=== PATIENT | male | born 1940 | race Caucasian/White ===

== ENCOUNTER → 2019-09-07 | Outpatient (CLI) | payer MEDICARE ==
--- NOTE | 2019-09-10 07:47 | US ---
EXAMINATION TYPE: US prostate transrectal DATE OF EXAM: 09/07/2019 COMPARISON: NONE CLINICAL HISTORY: N40.1 BPH without obstruction. BPH, slow urine stream This examination was performed using the transrectal probe. EXAM MEASUREMENTS: Gland Size: 4.7 x 4.1 x 2.5cm Volume: 25.2 Predicted PSA: 3.0 Actual PSA (if available): not available Initial images of the seminal vesicles are within normal limits. Prostate gland is heterogeneous and measures upper limits of normal in size without discrete nodule identified on images saved. IMPRESSION: Fairly unremarkable study. Predicted PSA = volume x 0.12 ng/ml Calculated Volume = 0.5236 x L x W x H
== END | disposition home or self-care (01) ==
LOC: RADUSWWP 08:05
PROVIDERS: ATTEND Family Medicine
DX: N40.1 Benign prostatic hyperplasia with lower urinary tract symptoms (principal)
CPT/HCPCS: 76872

== ENCOUNTER → 2019-09-10 | Outpatient (CLI) | payer MEDICARE ==
--- NOTE | 2019-09-10 13:22 | US ---
EXAMINATION TYPE: US kidneys/renal and bladder DATE OF EXAM: 09/10/2019 COMPARISON: NONE CLINICAL HISTORY: 79-year-old male R31.9 HEMATURIA. TECHNIQUE: Multiple sonographic images of the kidneys and bladder are obtained. FINDINGS: EXAM MEASUREMENTS: Right Kidney: 11.0 x 4.9 x 4.0 cm Left Kidney: 10.4 x 4.8 x 4.4 cm No hydronephrosis on either side. Bladder: wnl Bilateral Jets seen: Yes IMPRESSION: No hydronephrosis. Bladder shows no gross abnormality by ultrasound.
== END | disposition home or self-care (01) ==
LOC: RADUSWWP 10:31
PROVIDERS: ATTEND Family Medicine
DX: R31.9 Hematuria, unspecified (principal)
CPT/HCPCS: 76770

== ENCOUNTER 2021-01-21 14:26 | Observation (INO) | payer MEDICARE ==
--- NOTE | 2021-01-21 15:26 | ED ---
General Adult HPI - General Chief complaint: Weakness Stated complaint: weak/ams/high HR/pcp sent Time Seen by Provider: 01/21/21 14:53 Source: family Mode of arrival: ambulatory Limitations: no limitations - History of Present Illness Initial comments: Dictation was produced using [employer] dictation software. please excuse any grammatical, word or spelling errors. Chief Complaint: 80-year-old male sent in from primary care physician's office for abnormal EKG. History of Present Illness: Patient is 80-year-old male he has multiple comorbidities. Patient takes any coagulation medications and beta blockers. Patient was brought to his primary care physician's by family for concerns of patient's mentation. Over the last 1-2 weeks patient has been having bouts of insomnia, daytime somnolence and aggressive behavior. at the bedside who is with the patient states that he's been having increased frequency of these episodes. They went to the primary care physician's office today and noticed that he was tachycardic. They performed an EKG were primary care physician was concerned about the findings. We speak told the family that he is concerned about a heart attack. Patient states he does not have any active chest pain at this time. He has reported on and off chest pain symptoms for the last several months. Patient is a poor historian and cannot tell me when the last time he had chest pain was. Daughter at the bedside reports that patient gives his medications to himself. She reports that patient is very forgetful. Patient's primary care physician was worried about a urinary tract infection. He did rec eive an IM injection of antibiotics prior to coming to the emergency room. The ROS documented in this emergency department record has been reviewed and confirmed by me. Those systems with pertinent positive or negative responses have been documented in the HPI. All other systems are other negative and/or noncontributory. PHYSICAL EXAM: General Impression: Alert and oriented x3, not in acute distress HEENT: Normocephalic atraumatic, extra-ocular movements intact, pupils equal and reactive to light bilaterally, mucous membranes moist. Cardiovascular: Heart regular rate and rhythm Chest: Able to complete full sentences, no retractions, no tachypnea Abdomen: abdomen soft, non-tender, non-distended, no organomegaly Musculoskeletal: Pulses present and equal in all extremities, no peripheral edema Motor: no focal deficits noted Neurological: CN II-XII grossly intact, no focal motor or sensory deficits noted Skin: Intact with no visualized rashes Psych: Normal affect and mood ED course: 80-year-old male presents to the emergency department for abnormal EKG. He was initially brought to PCPs office for mental status changes occurring over the last couple weeks described as emotional outbursts and sleep pattern disruption. He was sent here because of EKG that PCP is concerned about its findings. Signs upon arrival shows heart rate of 122, rest of vital signs within acceptable limits. EKG performed shows right bundle branch block. There are no ST elevations. Patient does not have any chest pain. Is well-appearing at bedside. He is tachycardic. There is suspicion that patient had forgotten to take his beta maria esther medications the last several days. EKG interpretation: Ventricular rate 123, sinus tachycardia with aberrancy, QRS 176, QTC 575. No OK prolongation, no QTC prolongation, no ST or T-wave changes noted. No old EKG for comparison. Overall this EKG is nonspecific. Repeat EKG shows no dynamic changes. Ventricular rate 102, A. fib, right bundle branch block, OK interval 112, QRS 140, QTc 521 Laboratory evaluation obtained. CBC, coag panel is unremarkable. Metabolic panel shows elevated creatinine and BUN. No baseline labs for comparison. Rest of labs unremarkable. Troponin is negative. Urinalysis negative. Morrison virus is negative. Computed tomography scan of the head and C-spine is unremarkable. Chest x-ray and pelvis x-ray unremarkable.Patient is reevaluated at the bedside at 7:00 PM he is in stable medical condition. Disposition options were discussed with patient and patient's . Patient EKG is benign no concern for ACS. This does appear to be right bundle branch block without any ST changes. Patient is asymptomatic. Concern of his mental status and his aggressive emotional outburst. does not feel comfortable with patient being dispositioned to home at this time. Patient is not reliable to a point where he can take his medications as prescribed without any assistance. Patient will be admitted to [facility]. Patient will require pillowcase turner evaluation to set up home health care nursing. - Related Data Home Medications Medication Instructions Recorded Confirmed Aspirin 81 mg PO DAILY 09/10/13 01/21/21 metFORMIN HCL [Glucophage] 500 mg PO BID 09/10/13 01/21/21 Apixaban [Eliquis] 5 mg PO BID 01/21/21 01/21/21 Citalopram Hydrobromide [CeleXA] 40 mg PO DAILY 01/21/21 01/21/21 Metoprolol Succinate [Toprol XL] 25 mg PO DAILY 01/21/21 01/21/21 Multivit-Min/FA/Lycopen/Lutein 1 tab PO DAILY 01/21/21 01/21/21 [Centrum Silver Men Tablet] Tadalafil [Cialis] 5 mg PO DAILY 01/21/21 01/21/21 Tamsulosin [Flomax] 0.4 mg PO DAILY 01/21/21 01/21/21 rOPINIRole HCL [Requip] 2 mg PO HS 01/21/21 01/21/21 Allergies Allergy/AdvReac Type Severity Reaction Status Date / Time No Known Allergies Allergy Verified 01/21/21 16:21 Review of Systems ROS Statement: Those systems with pertinent positive or pertinent negative responses have been documented in the HPI. ROS Other: All systems not noted in ROS Statement are negative. Past Medical History Past Medical History: Coronary Artery Disease (CAD), Cancer, Diabetes Mellitus, Eye Disorder, Hyperlipidemia, Hypertension Additional Past Medical History / Comment(s): SKIN CA, CATARACT LEFT EYE History of Any Multi-Drug Resistant Organisms: None Reported Past Surgical History: Appendectomy, Heart Catheterization With Stent Additional Past Surgical History / Comment(s): SKIN CANCER Past Anesthesia/Blood Transfusion Reactions: No Reported Reaction Date of Last Stent Placement:: 12/31/2008 Past Psychological History: Anxiety Smoking Status: Never smoker Past Alcohol Use History: Occasional Past Drug Use History: None Reported - Past Family History Brother(s) Family Medical History: Cancer Additional Family Medical History / Comment(s): THROAT CANCER General Exam Limitations: no limitations Course Vital Signs 01/21/21 01/21/21 14:30 15:00 Temperature 98.8 F Pulse Rate 122 H Pulse Rate [ 120 H Physical Instructor ] Respiratory 20 Rate Blood Pressure 118/87 O2 Sat by Pulse 99 Oximetry Medical Decision Making - Lab Data Result diagrams: 01/21/21 15:21 01/21/21 15:21 Lab Results 01/21/21 01/21/21 01/21/21 Range/Units 15:21 15:21 15:21 WBC 6.6 (3.8-10.6) k/uL RBC 4.98 (4.30-5.90) m/uL Hgb 15.6 (13.0-17.5) gm/dL Hct 47.5 (39.0-53.0) % MCV 95.5 (80.0-100.0) fL MCH 31.4 (25.0-35.0) pg MCHC 32.9 (31.0-37.0) g/dL RDW 12.0 (11.5-15.5) % Plt Count 165 (150-450) k/uL MPV 8.1 Neutrophils % 61 % Lymphocytes % 25 % Monocytes % 8 % Eosinophils % 4 % Basophils % 0 % Neutrophils # 4.0 (1.3-7.7) k/uL Lymphocytes # 1.6 (1.0-4.8) k/uL Monocytes # 0.6 (0-1.0) k/uL Eosinophils # 0.2 (0-0.7) k/uL Basophils # 0.0 (0-0.2) k/uL PT 10.9 (9.0-12.0) sec INR 1.0 (<1.2) APTT 20.3 L (22.0-30.0) sec Sodium 137 (137-145) mmol/L Potassium 5.4 H (3.5-5.1) mmol/L Chloride 102 (98-107) mmol/L Carbon Dioxide 26 (22-30) mmol/L Anion Gap 9 mmol/L BUN 28 H (9-20) mg/dL Creatinine 1.45 H (0.66-1.25) mg/dL Est GFR (CKD-EPI)AfAm 52 (>60 ml/min/1.73 sqM) Est GFR (CKD-EPI)NonAf 45 (>60 ml/min/1.73 sqM) Glucose 118 H (74-99) mg/dL Plasma Lactic Acid Tanner (0.7-2.0) mmol/L Calcium 9.9 (8.4-10.2) mg/dL Magnesium 2.3 (1.6-2.3) mg/dL Total Bilirubin 2.4 H (0.2-1.3) mg/dL AST 20 (17-59) U/L ALT 10 (4-49) U/L Alkaline Phosphatase 60 (38-126) U/L Troponin I (0.000-0.034) ng/mL Total Protein 7.0 (6.3-8.2) g/dL Albumin 4.0 (3.5-5.0) g/dL Urine Color Urine Appearance (Clear) Urine pH (5.0-8.0) Ur Specific [place] (1.001-1.035) Urine Protein (Negative) Urine Glucose (UA) (Negative) Urine Ketones (Negative) Urine Blood (Negative) Urine Nitrite (Negative) Urine Bilirubin (Negative) Urine Urobilinogen (<2.0) mg/dL Ur Leukocyte Esterase (Negative) Coronavirus (PCR) (Not Detectd) 01/21/21 01/21/21 01/21/21 Range/Units 15:21 15:26 15:26 WBC (3.8-10.6) k/uL RBC (4.30-5.90) m/uL Hgb (13.0-17.5) gm/dL Hct (39.0-53.0) % MCV (80.0-100.0) fL MCH (25.0-35.0) pg MCHC (31.0-37.0) g/dL RDW (11.5-15.5) % Plt Count (150-450) k/uL MPV Neutrophils % % Lymphocytes % % Monocytes % % Eosinophils % % Basophils % % Neutrophils # (1.3-7.7) k/uL Lymphocytes # (1.0-4.8) k/uL Monocytes # (0-1.0) k/uL Eosinophils # (0-0.7) k/uL Basophils # (0-0.2) k/uL PT (9.0-12.0) sec INR (<1.2) APTT (22.0-30.0) sec Sodium (137-145) mmol/L Potassium (3.5-5.1) mmol/L Chloride (98-107) mmol/L Carbon Dioxide (22-30) mmol/L Anion Gap mmol/L BUN (9-20) mg/dL Creatinine (0.66-1.25) mg/dL Est GFR (CKD-EPI)AfAm (>60 ml/min/1.73 sqM) Est GFR (CKD-EPI)NonAf (>60 ml/min/1.73 sqM) Glucose (74-99) mg/dL Plasma Lactic Acid Tanner 1.0 (0.7-2.0) mmol/L Calcium (8.4-10.2) mg/dL Magnesium (1.6-2.3) mg/dL Total Bilirubin (0.2-1.3) mg/dL AST (17-59) U/L ALT (4-49) U/L Alkaline Phosphatase (38-126) U/L Troponin I <0.012 (0.000-0.034) ng/mL Total Protein (6.3-8.2) g/dL Albumin (3.5-5.0) g/dL Urine Color Urine Appearance (Clear) Urine pH (5.0-8.0) Ur Specific [place] (1.001-1.035) Urine Protein (Negative) Urine Glucose (UA) (Negative) Urine Ketones (Negative) Urine Blood (Negative) Urine Nitrite (Negative) Urine Bilirubin (Negative) Urine Urobilinogen (<2.0) mg/dL Ur Leukocyte Esterase (Negative) Coronavirus (PCR) Not Detected (Not Detectd) 01/21/21 Range/Units 16:44 WBC (3.8-10.6) k/uL RBC (4.30-5.90) m/uL Hgb (13.0-17.5) gm/dL Hct (39.0-53.0) % MCV (80.0-100.0) fL MCH (25.0-35.0) pg MCHC (31.0-37.0) g/dL RDW (11.5-15.5) % Plt Count (150-450) k/uL MPV Neutrophils % % Lymphocytes % % Monocytes % % Eosinophils % % Basophils % % Neutrophils # (1.3-7.7) k/uL Lymphocytes # (1.0-4.8) k/uL Monocytes # (0-1.0) k/uL Eosinophils # (0-0.7) k/uL Basophils # (0-0.2) k/uL PT (9.0-12.0) sec INR (<1.2) APTT (22.0-30.0) sec Sodium (137-145) mmol/L Potassium (3.5-5.1) mmol/L Chloride (98-107) mmol/L Carbon Dioxide (22-30) mmol/L Anion Gap mmol/L BUN (9-20) mg/dL Creatinine (0.66-1.25) mg/dL Est GFR (CKD-EPI)AfAm (>60 ml/min/1.73 sqM) Est GFR (CKD-EPI)NonAf (>60 ml/min/1.73 sqM) Glucose (74-99) mg/dL Plasma Lactic Acid Tanner (0.7-2.0) mmol/L Calcium (8.4-10.2) mg/dL Magnesium (1.6-2.3) mg/dL Total Bilirubin (0.2-1.3) mg/dL AST (17-59) U/L ALT (4-49) U/L Alkaline Phosphatase (38-126) U/L Troponin I (0.000-0.034) ng/mL Total Protein (6.3-8.2) g/dL Albumin (3.5-5.0) g/dL Urine Color Light Yellow Urine Appearance Clear (Clear) Urine pH 5.0 (5.0-8.0) Ur Specific [place] 1.005 (1.001-1.035) Urine Protein Negative (Negative) Urine Glucose (UA) Negative (Negative) Urine Ketones Negative (Negative) Urine Blood Negative (Negative) Urine Nitrite Negative (Negative) Urine Bilirubin Negative (Negative) Urine Urobilinogen <2.0 (<2.0) mg/dL Ur Leukocyte Esterase Negative (Negative) Coronavirus (PCR) (Not Detectd) Disposition Clinical Impression: Tachycardia Disposition: ADMITTED IP TO THIS HOSP Condition: Fair Referrals: Lalo Louie MD [Primary Care Provider] - 1-2 days
[2021-01-21 15:36] LABS: Basophils % (A) 0 %; Eosinophils # (A) 0.2 k/uL (0-0.7); Eosinophils % (A) 4 %; HCT 47.5 % (39.0-53.0); HGB 15.6 gm/dL (13.0-17.5); Lymphocytes # (A) 1.6 k/uL (1.0-4.8); Lymphocytes % (A) 25 %; MCH 31.4 pg (25.0-35.0); MCHC 32.9 g/dL (31.0-37.0); MCV 95.5 fL (80.0-100.0); Mean Platelet Volume 8.1; Monocytes # (A) 0.6 k/uL (0-1.0); Monocytes % (A) 8 %; Neutrophils % (A) 61 %; Platelet Count 165 k/uL (150-450); RBC 4.98 m/uL (4.30-5.90); WBC 6.6 k/uL (3.8-10.6)
[2021-01-21 15:47] LABS: Calcium 9.9 mg/dL (8.4-10.2); Magnesium 2.3 mg/dL (1.6-2.3); Potassium 5.4 mmol/L (3.5-5.1); Total Bilirubin 2.4 mg/dL (0.2-1.3)
[2021-01-21 15:55] LABS: Partial Thromboplastin Time 20.3 sec (22.0-30.0); Prothrombin Time 10.9 sec (9.0-12.0)
--- NOTE | 2021-01-21 15:57 | CT ---
EXAMINATION TYPE: CT brain milton powell DATE OF EXAM: 01/21/2021 COMPARISON: None HISTORY: weakness, difficulty walking CT DLP: 1345.[address] of the brain was performed. The ventricles, basal cisterns and sulci overlying the cerebral convexities demonstrate moderate enla rgement. There is no evidence for intracranial hemorrhage or sulcal effacement. There is decreased attenuatio n about the periventricular white matter and deep white matter of both cerebral hemispheres, compatib le with chronic small vessel ischemia. No mass effects are seen. If symptoms persist consider MRI. Osseous calvarium is intact. IMPRESSION: 1. Age related atrophic and chronic small vessel ischemic change without acute intracranial process seen at this time. CT Cervical Spine: Unenhanced CT of the cervical spine was performed with bone and soft tissue window settings submitted . Coronal and sagittal reconstruction is obtained. There is normal alignment and prevertebral soft tissues. No evidence for acute cervical fracture . Scattered degenerative disc disease and spondylosis. Biapical scarring. IMPRESSION: 1. No evidence for acute fracture or subluxation of the cervical spine.
[2021-01-21 16:49] LABS: Appearance,Urine Clear (Clear); Bilirubin,Urine Negative (Negative); Blood,Urine Negative (Negative); Color,Urine Light Yellow; Glucose,Urine (UA) Negative (Negative); Ketones,Urine Negative (Negative); Leukocyte Esterase,Urine Negative (Negative); Nitrite,Urine Negative (Negative); Protein,Urine Negative (Negative); Specific Gravity,Urine 1.005 (1.001-1.035); Urobilinogen,Urine <2.0 mg/dL (<2.0)
--- NOTE | 2021-01-21 17:35 | XR ---
EXAMINATION TYPE: XR pelvis AP view DATE OF EXAM: 01/21/2021 COMPARISON: NONE HISTORY: Fall. Pain TECHNIQUE: Single view FINDINGS: Pelvic ring appears intact. Proximal femurs and hip joints are intact. Sacroiliac joints ar e intact. IMPRESSION: Negative exam. No fracture.
--- NOTE | 2021-01-21 17:36 | XR ---
EXAMINATION TYPE: XR chest 1V portable DATE OF EXAM: 01/21/2021 COMPARISON: NONE HISTORY: Abnormal cardiogram TECHNIQUE: Single view FINDINGS: There is no heart failure nor confluent pneumonic infiltrate. Costophrenic angles are clear . There are chest leads. IMPRESSION: No active cardiopulmonary disease.
[2021-01-21] MEDS ORDERED: NALOXONE 0.4 MG/ML 1 ML VIAL IV PRN (19:12)
[2021-01-21] MEDS ORDERED: SODIUM CHLORIDE 0.9% 1,000 ML IV SCH (19:15)
[2021-01-21] MEDS: APIXABAN 5 MG TAB PO SCH (20:15)
[2021-01-21] MEDS: METOPROLOL SUCCINATE (ER) 25 MG TAB.ER.24H PO SCH (20:15)
[2021-01-21] MEDS: metFORMIN 500 MG TAB PO SCH (20:15)
[2021-01-22] MEDS ORDERED: QUEtiapine 25 MG TAB PO SCH (00:30)
--- NOTE | 2021-01-22 00:34 | P.HPIM ---
History of Present Illness H&P Date: 01/21/21 Chief Complaint: dementia behavioral changes 80-year-old male with coronary artery disease, diabetes mellitus, hyperlipidemia and hypertension Was brought in by his family due to worsening behavior home becoming more and more aggressive. He is having daytime somnolence and then insomnia at night keeping everyone up disturbing the whole family. Patient family contact PCP who suggested that he gets evaluated and upon evaluating the patient his PCP was voicing concerns regarding heart attack or UTI for which he recommended that he comes to hospital for evaluation. Patient is unable to provide any meaningful history is awake alert however he is not happy about being in the hospital and keeps asking to leave couldn't obtain any history from him. History was obtained by reviewing medical records Patient was thoroughly evaluated in the ED CT imaging of the brain showed no acute pathology Covid testing was negative urine analysis was negative age and has slightly elevated creatinine unknown baseline mild hyperkalemia 5.4. Blood work overall unremarkable EKG shows right bundle branch block Chest pain trouble breathing denies any fevers chills denies any abdominal pain nausea or vomiting Anabel is requesting admission for social work to evaluate the case and possibly help with home care or placement at rehab Review of Systems ROS unobtainable: due to mental status Past Medical History Past Medical History: Coronary Artery Disease (CAD), Cancer, Diabetes Mellitus, Eye Disorder, Hyperlipidemia, Hypertension Additional Past Medical History / Comment(s): SKIN CA, CATARACT LEFT EYE History of Any Multi-Drug Resistant Organisms: None Reported Past Surgical History: Appendectomy, Heart Catheterization With Stent Additional Past Surgical History / Comment(s): SKIN CANCER Past Anesthesia/Blood Transfusion Reactions: No Reported Reaction Date of Last Stent Placement:: 12/31/2008 Past Psychological History: Anxiety Smoking Status: Never smoker Past Alcohol Use History: Occasional Additional Past Alcohol Use History / Comment(s): Patient states he uses cigars two a week Past Drug Use History: None Reported - Past Family History Brother(s) Family Medical History: Cancer Additional Family Medical History / Comment(s): THROAT CANCER Medications and Allergies Home Medications Medication Instructions Recorded Confirmed Type Aspirin 81 mg PO DAILY 09/10/13 01/21/21 History metFORMIN HCL [Glucophage] 500 mg PO BID 09/10/13 01/21/21 History Apixaban [Eliquis] 5 mg PO BID 01/21/21 01/21/21 History Citalopram Hydrobromide [CeleXA] 40 mg PO DAILY 01/21/21 01/21/21 History Metoprolol Succinate [Toprol XL] 25 mg PO DAILY 01/21/21 01/21/21 History Multivit-Min/FA/Lycopen/Lutein 1 tab PO DAILY 01/21/21 01/21/21 History [Centrum Silver Men Tablet] Tadalafil [Cialis] 5 mg PO DAILY 01/21/21 01/21/21 History Tamsulosin [Flomax] 0.4 mg PO DAILY 01/21/21 01/21/21 History rOPINIRole HCL [Requip] 2 mg PO HS 01/21/21 01/21/21 History Allergies Allergy/AdvReac Type Severity Reaction Status Date / Time No Known Allergies Allergy Verified 01/21/21 16:21 Physical Exam Vitals: Vital Signs Temp Pulse Pulse Pulse Resp BP BP 01/21/21 22:08 97.9 F 107 H 18 133/86 01/21/21 15:00 120 H 01/21/21 14:30 98.8 F 122 H 20 118/87 Pulse Ox 01/21/21 22:08 97 01/21/21 15:00 01/21/21 14:30 99 Intake and Output 01/21/21 01/21/21 01/22/21 14:59 22:59 06:59 Other: Weight 72.575 kg 72.575 kg Constitutional: No acute distress, conversant, pleasant, eager to leave Eyes: Anicteric sclerae, moist conjunctiva, Pupils equal round reactive to light ENMT: NC/AT Oropharynx clear, no erythema, or exudates Neck: Supple, FROM, no masses, or JVD No carotid bruits No thyromegaly Lungs: Clear to auscultation Clear to percussion Normal respiratory effort, no accessory muscle use Cardiovascular: Heart regular in rate and rhythm, No murmurs, gallops, or rubs No peripheral edema Abdominal: Soft Nontender, no guarding, rebound or rigidity Abdomen moving with respiration Normoactive bowel sounds No hepatomegaly, No splenomegaly No palpable mass No abdominal wall hernia noted Skin: Normal temperature, tone, texture, turgor Small area of erythema over the right forehead with central scabbing no bleeding Extremities: No digital cyanosis No clubbing Pedal pulses intact and symmetrical Radial pulses intact and symmetrical No calf tenderness Psychiatric: Alert and oriented to person, place Neuro Muscles Strength 5/5 in all 4 extremities moving all extremities purposefully and spontaneously Sensation to light touch grossly present throughout Cranial nerves II-XII grossly intact Lymphatics: no palpable cervical or supraclavicular , or inguinal lymph nodes Results CBC & Chem 7: 01/21/21 15:21 01/21/21 15:21 Labs: Abnormal Lab Results - Last 24 Hours (Table) 01/21/21 01/21/21 Range/Units 15:21 15:21 APTT 20.3 L (22.0-30.0) sec Potassium 5.4 H (3.5-5.1) mmol/L BUN 28 H (9-20) mg/dL Creatinine 1.45 H (0.66-1.25) mg/dL Glucose 118 H (74-99) mg/dL Total Bilirubin 2.4 H (0.2-1.3) mg/dL Thrombosis Risk Factor Assmnt - Choose All That Apply Each Factor Represents 1 point: Obesity (BMI >25) Each Risk Factor Represents 3 Points: Age 75 years or older Thrombosis Risk Factor Assessment Total Risk Factor Score: 4 Thrombosis Risk Factor Assessment Level: Moderate Risk Assessment and Plan Assessment: Behavioral changes possibly related to progressive dementia Supportive care ET evaluation tool maintenance worker to assist with home care versus placement Slightly elevated creatinine possibly related CK D unknown baseline Patient refusing IV lines and telemetry We'll encourage by mouth intake We'll monitor renal function and urine output Unable to start patient on any IV hydration at this time Urine analysis unremarkable Covid testing was negative Imaging of the brain showed no acute pathology Labs overall unremarkable septum for elevated creatinine and slightly elevated potassium unknown baseline Will be offered Seroquel at night if patient continues to have aggressive behavior and attempting to leave non compliance with meds, he takes his own, and family is not sure if he has been taking them Full code Anticipated length of stay less than 2 midnights anticipated discharge pending hospital social worker eval home with home care versus rehab
[2021-01-22 05:02] LABS: Basophils # (A) 0.1 k/uL (0-0.2); Basophils % (A) 1 %; Eosinophils # (A) 0.3 k/uL (0-0.7); Eosinophils % (A) 4 %; HCT 50.3 % (39.0-53.0); HGB 16.1 gm/dL (13.0-17.5); Lymphocytes % (A) 28 %; MCV 100.2 fL (80.0-100.0); Monocytes # (A) 0.7 k/uL (0-1.0); Monocytes % (A) 10 %; Neutrophils # (A) 3.9 k/uL (1.3-7.7); Neutrophils % (A) 54 %; Platelet Count 150 k/uL (150-450); RBC 5.02 m/uL (4.30-5.90); RDW 12.1 % (11.5-15.5); WBC 7.1 k/uL (3.8-10.6)
[2021-01-22 08:02] VITALS: RESP 16
[2021-01-22] MEDS ORDERED: MULTIVITAMINS, THERA 1 EACH TAB PO SCH (09:00)
[2021-01-22] MEDS ORDERED: ASPIRIN 81 MG PO SCH (09:00)
[2021-01-22] MEDS ORDERED: CITALOPRAM HYDROBROMIDE 20 MG TAB PO SCH (09:00)
[2021-01-22] MEDS: APIXABAN 5 MG TAB PO SCH (09:40)
[2021-01-22] MEDS: METOPROLOL SUCCINATE (ER) 25 MG TAB.ER.24H PO SCH (09:41)
[2021-01-22] MEDS: metFORMIN 500 MG TAB PO SCH (09:41)
[2021-01-22 11:22] LABS: African American GFR (CKD) 54.2 (60.0-200.0); Anion Gap 15.4 mmol/L (4.00-12.00); BUN/Creat Ratio 17.21 Ratio (12.00-20.00); Blood Urea Nitrogen 24.1 mg/dL (9.0-27.0); Calcium 9.1 mg/dL (8.7-10.3); Carbon Dioxide 19.6 mmol/L (21.6-31.8); Non-African American GFR(CKD) 46.8 (60.0-200.0); Potassium 4.8 mmol/L (3.5-5.5)
[2021-01-22 14:50] VITALS: BP 114/83; PULSE 105; TEMP 98.7
--- NOTE | 2021-01-22 21:12 | P.DS ---
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 In the ER he underwent an extensive evaluation. Vital signs within normal limits. Urinalysis was negative for urinary tract infection, EKG did demonstrate a right bundle branch block however the patient was asymptomatic from any signs of chest pain, no prior EKG was available. Troponin was negative. He underwent a CT of the head and cervical spine which was negative, chest x-ray negative, and pelvic x-ray negative. COVID-19 testing was also negative. During his hospital stay patient was alert and oriented 3, but did have some episodes of confusion, he had no episodes of aggression. He did not require any additional medications. Labs did reveal slight dehydration with a BUN of 28 however patient refused IV fluids and was given oral hydration and his BUN decreased to 24. He was noted to have tachycardia of 122 on admission which decreased to the 80-100 prior to discharge once he was resumed on his home medications. It was felt that he is medically optimized for discharge. Family was given options of private duty home health care as well as regular home health care but refused. Patient does not appear to have any acute medical illness and was subsequently discharged home in stable condition. Follow-up: Did discuss with family need to follow-up with his PCP for further evaluation, no longer requires hospitaization but need to ensure taking medication and further outpatient evaluation. Family in agreement. Patient seen and examined at bedside. Denies any chest pain, shortness breath, nausea, vomiting, diarrhea. He states he has had increased anxiety at home as his has difficulty walking due to bad legs, his daughter has been less able to help because of her own issues, and his son no longer returns their phone calls. He realizes that he has some difficulty with memory and states that he feels better after being out of the environment and at the hospital. Vital signs reviewed and stable. General: non toxic, no distress, appears at stated age Derm: warm, dry Head: atraumatic, normocephalic, symmetric Eyes: EOMI, no lid lag, anicteric sclera Mouth: no lip lesion, mucus membranes moist Cardiovascular: S1S2 reg, no murmur, positive posterior tibial pulse bilateral, Lungs: CTA bilateral, no rhonchi, no rales , no accessory muscle use Abdominal: soft, nontender to palpation, no guarding, no appreciable organomegaly Ext: no gross muscle atrophy, no edema, no contractures Neuro: CN II-XI grossly intact, no focal neuro deficits, nonantalgic gait Psych: Alert, oriented 3, appropriate affect A total of 25 minutes of time were spent preparing this complex discharge summary . Patient Condition at Discharge: Fair Plan - Discharge Summary Discharge Rx Participant: Yes New Discharge Prescriptions: Continue metFORMIN HCL [Glucophage] 500 mg PO BID Aspirin 81 mg PO DAILY rOPINIRole HCL [Requip] 2 mg PO HS Tamsulosin [Flomax] 0.4 mg PO DAILY Apixaban [Eliquis] 5 mg PO BID Citalopram Hydrobromide [CeleXA] 40 mg PO DAILY Metoprolol Succinate [Toprol XL] 25 mg PO DAILY Multivit-Min/FA/Lycopen/Lutein [Centrum Silver Men Tablet] 1 tab PO DAILY Tadalafil [Cialis] 5 mg PO DAILY Discharge Medication List Aspirin 81 mg PO DAILY 09/10/13 [History] metFORMIN HCL [Glucophage] 500 mg PO BID 09/10/13 [History] Apixaban [Eliquis] 5 mg PO BID 01/21/21 [History] Citalopram Hydrobromide [CeleXA] 40 mg PO DAILY 01/21/21 [History] Metoprolol Succinate [Toprol XL] 25 mg PO DAILY 01/21/21 [History] Multivit-Min/FA/Lycopen/Lutein [Centrum Silver Men Tablet] 1 tab PO DAILY 01/21/21 [History] Tadalafil [Cialis] 5 mg PO DAILY 01/21/21 [History] Tamsulosin [Flomax] 0.4 mg PO DAILY 01/21/21 [History] rOPINIRole HCL [Requip] 2 mg PO HS 01/21/21 [History] Follow up Appointment(s)/Referral(s): Lalo Louie MD [Primary Care Provider] - 1-2 days Patient Instructions/Handouts: Tachycardia (GEN) Activity/Diet/Wound Care/Special Instructions: Activity: as tolerated Diet: regular Special Instructions: please stay hydrated Discharge Disposition: HOME SELF-CARE
== END 2021-01-22 19:26 | disposition home or self-care (01) ==
LOC: EC 14:26 → 6NMEDSUR 19:12
PROVIDERS: ADMIT Internal Medicine; ATTEND Internal Medicine
DX: R00.0 Tachycardia, unspecified (principal); I45.10 Unspecified right bundle-branch block; E86.0 Dehydration; F91.8 Other conduct disorders; Z91.14 Patient's other noncompliance with medication regimen; Z91.19 Patient's noncompliance with other medical treatment and regimen; R94.31 Abnormal electrocardiogram [ECG] [EKG]; R41.82 Altered mental status, unspecified; G47.00 Insomnia, unspecified; E11.9 Type 2 diabetes mellitus without complications; I48.91 Unspecified atrial fibrillation; I10 Essential (primary) hypertension; I25.10 Atherosclerotic heart disease of native coronary artery without angina pectoris; E87.5 Hyperkalemia; H26.9 Unspecified cataract; E78.5 Hyperlipidemia, unspecified; E66.9 Obesity, unspecified; Z68.25 Body mass index [BMI] 25.0-25.9, adult; F41.9 Anxiety disorder, unspecified; R79.89 Other specified abnormal findings of blood chemistry; M50.30 Other cervical disc degeneration, unspecified cervical region; M47.812 Spondylosis without myelopathy or radiculopathy, cervical region; F17.290 Nicotine dependence, other tobacco product, uncomplicated; Z20.822 Contact with and (suspected) exposure to COVID-19; Z79.82 Long term (current) use of aspirin; Z79.84 Long term (current) use of oral hypoglycemic drugs; Z79.01 Long term (current) use of anticoagulants; Z79.899 Other long term (current) drug therapy; Z85.828 Personal history of other malignant neoplasm of skin; Z90.49 Acquired absence of other specified parts of digestive tract; Z95.5 Presence of coronary angioplasty implant and graft; Z80.8 Family history of malignant neoplasm of other organs or systems
CPT/HCPCS: 99285; 36415; 93005; 80053; 80048; 82247; 83605; 83735; 84450; 84460; 84484 ×2; 85025 ×2; 85610; 85730; 81003; 87635; 72170; 71045; 72125; 70450; G0378 ×2

== ENCOUNTER 2021-01-28 19:34 | Observation (INO) | payer MEDICARE ==
[2021-01-28] MEDS ORDERED: SODIUM CHLORIDE 0.9% 1,000 ML IV ONE (20:34)
[2021-01-28 20:50] LABS: Basophils % (A) 0 %; Eosinophils # (A) 0.2 k/uL (0-0.7); Eosinophils % (A) 3 %; HCT 41.7 % (39.0-53.0); Lymphocytes # (A) 1.1 k/uL (1.0-4.8); Lymphocytes % (A) 13 %; MCH 32.2 pg (25.0-35.0); MCHC 33.5 g/dL (31.0-37.0); MCV 96.3 fL (80.0-100.0); Mean Platelet Volume 8.5; Monocytes # (A) 0.5 k/uL (0-1.0); Monocytes % (A) 6 %; Neutrophils # (A) 6.4 k/uL (1.3-7.7); Neutrophils % (A) 76 %; Platelet Count 136 k/uL (150-450); RBC 4.33 m/uL (4.30-5.90); RDW 12.2 % (11.5-15.5); WBC 8.4 k/uL (3.8-10.6)
[2021-01-28 21:01] LABS: Lactic Acid, Venous 0.9 mmol/L (0.7-2.0)
[2021-01-28 21:02] LABS: INR 1.1 (<1.2); Partial Thromboplastin Time 23.3 sec (22.0-30.0); Prothrombin Time 11.8 sec (9.0-12.0)
[2021-01-28 21:03] LABS: ALT 12 U/L (4-49); AST 20 U/L (17-59); African American GFR (CKD) 57 (>60 ml/min/1.73 sqM); Albumin 3.6 g/dL (3.5-5.0); Alcohol <10 mg/dL; Alkaline Phosphatase 57 U/L (38-126); Anion Gap 7 mmol/L; Blood Urea Nitrogen 29 mg/dL (9-20); Calcium 8.6 mg/dL (8.4-10.2); Carbon Dioxide 20 mmol/L (22-30); Chloride 107 mmol/L (98-107); Glucose 147 mg/dL (74-99); Non-African American GFR(CKD) 50 (>60 ml/min/1.73 sqM); Potassium 4.8 mmol/L (3.5-5.1); Sodium 134 mmol/L (137-145); Total Bilirubin 1.7 mg/dL (0.2-1.3); Total Protein 6.3 g/dL (6.3-8.2)
[2021-01-28 21:44] LABS: Appearance,Urine Clear (Clear); Bilirubin,Urine Negative (Negative); Blood,Urine Negative (Negative); Color,Urine Yellow; Glucose,Urine (UA) Negative (Negative); Ketones,Urine Negative (Negative); Leukocyte Esterase,Urine Negative (Negative); Nitrite,Urine Negative (Negative); Protein,Urine Negative (Negative); Urobilinogen,Urine <2.0 mg/dL (<2.0)
[2021-01-28 21:50] LABS: Specific Gravity,Urine 1.048 (1.001-1.035)
--- NOTE | 2021-01-28 21:53 | CT ---
EXAMINATION TYPE: CT brain wo con DATE OF EXAM: 01/28/2021 COMPARISON: 14/10/2020 HISTORY: AMS TECHNIQUE: CT scan of the head performed without contrast CT DLP: 1561.7 mGycm Automated exposure control for dose reduction was used. FINDINGS: No acute intracranial hemorrhage, midline shift or mass effect. Andres-white matter differentiation is preserved. There is new diffuse low attenuation involve the kristina compared to the prior study. There is a small f ocus of discrete low-attenuation in the left side of the rkistina which was also not seen on the prior st udy is prominence of the CSF spaces and ventricles in keeping with brain volume loss similar to prior study. There is patchy low-attenuation in the deep white matter periventricular regions and foci of low atte nuation in the bilateral basal ganglia likely on the basis of chronic microvascular ischemic changes and lacunar infarcts and both have increased in the interval compared to the most recent prior study. No acute osseous, orbital or soft tissue abnormalities seen. There is a mucosal retention cyst in the right maxillary sinus. There is mild mucosal thickening in t he ethmoid sinus. No paranasal sinus or mastoid air cell air-fluid levels. Atherosclerotic calcifications are seen in the intracranial internal carotid arteries. IMPRESSION: 1. NO ACUTE INTRACRANIAL HEMORRHAGE MIDLINE SHIFT OR MASS EFFECT. 2. COMPARED TO THE PRIOR STUDY THERE IS DIFFUSE LOW-ATTENUATION INVOLVING THE KRISTINA WITH A DISCRETE FO CUS OF LOW-ATTENUATION THE LEFT SIDE OF THE KRISTINA WHICH COULD BE REFLECTIVE OF ISCHEMIA THOUGH ARTIFAC T AT THIS LEVEL COULD HAVE A SIMILAR APPEARANCE. . 3. TRACE PATCHY LOW-ATTENUATION THE DEEP WHITE MATTER AND PERIVENTRICULAR REGION LIKELY ON THE BASIS OF CHRONIC MICROVASCULAR ISCHEMIC CHANGES. The need for a brain MRI should be determined on clinical basis.
--- NOTE | 2021-01-28 22:03 | CT ---
EXAMINATION TYPE: CT angio head neck DATE OF EXAM: 01/28/2021 HISTORY: ams COMPARISON: None CT DLP: 1561.7 mGycm. Automated Exposure Control for Dose Reduction was Utilized. TECHNIQUE: CTA scan of the neck is performed with IV Contrast, patient injected with 65 mL of Isovue 370, axial images are obtained, coronal and sagittal reformatted images are reviewed. 3D reconstruct ed images are created on an independent workstation and reviewed. FINDINGS: Carotid/Vascular Structures: There is suboptimal evaluation due to bolus timing and suboptimal opacification of the arterial struc tures. There is minimal atherosclerotic calcifications at the origin of the left subclavian artery. There is minimal narrowing at the right common carotid artery bifurcation secondary to calcific and soft tiss ue plaque. External carotid arteries are patent. Renal carotid arteries in the neck are patent. Left vertebral artery is dominant. Both vertebral arteries are patent. The basilar artery is patent. There are sclerotic calcifications are seen in the intracranial internal carotid arteries. There are cerebral arteries are patent. All cerebral arteries are patent. The posterior cerebral joshua patricia are patent. No evidence for aneurysm or dissection. The deep venous structures are patent. Other: No cervical lymphadenopathy. The airways are patent. The upper lungs are complicated in evaluation by respiratory motion. The thyroid glands are not enlarged. There are degenerative changes in the cervical spine. IMPRESSION: No evidence for acute arterial occlusion. No significant stenosis and [place]. See body of r eport for incidental's. NASCET criteria was used in interpretation of this exam?
[2021-01-28 22:04] LABS: Cocaine Screen,Urine Not Detected (NotDetected); Opiate Screen,Urine Not Detected (NotDetected); Phencyclidine Screen,Urine Not Detected (NotDetected); Urn Cannabinoid Scrn Not Detected (NotDetected)
[2021-01-28 22:05] LABS: Amphetamine Screen,Urine Not Detected (NotDetected); Barbiturate Screen,Urine Not Detected (NotDetected); Benzodiazepines Screen,Urine Detected (NotDetected); Methadone Screen, Urine Not Detected (NotDetected); Oxycodone Screen, Urine Not Detected (NotDetected); Tricyclic Antidepressant,Urine Detected (NotDetected)
--- NOTE | 2021-01-28 22:19 | ED ---
General Adult HPI - General Chief complaint: Weakness Stated complaint: Weakness,AMS Time Seen by Provider: 01/28/21 19:58 Source: patient, EMS, RN notes reviewed, old records reviewed Mode of arrival: EMS - History of Present Illness Initial comments: I evaluated the patient when he was placed in a room.Patient is an 80-year-old male with past medical history remarkable for atrial fibrillation on eliquis, CAD, skin cancer, diabetes, hypertension who presents emergency department after being brought in by family members for lethargy and altered mental status. They've noticed that over the last week or so since he was last discharged from the hospital, he has been experiencing slowly increasing lethargy, slurring of speech, and tiredness. He is hard to awaken. He is normally "sharp" and fully alert and oriented. He is now only alert and oriented times one to 2 inte rmittently. He was originally scheduled to have an outpatient MRI, however they bring him to the emergency department tonight over concern for this worsening symptoms. Patient currently denies any acute complaints to me. He is easily arousable to voice, however it does appear sleepy. He denies any fevers, cough, chills. Denies any abdominal pain, nausea, vomiting. He was vaccinated for COVID-19. Family members assist in the history. He presents to the emergency Department for altered mental status. There is no known trauma per family. No new drug exposures per family. - Related Data Home Medications Medication Instructions Recorded Confirmed Aspirin 81 mg PO DAILY 09/10/13 01/28/21 metFORMIN HCL [Glucophage] 500 mg PO BID 09/10/13 01/28/21 Apixaban [Eliquis] 5 mg PO BID 01/21/21 01/28/21 Citalopram Hydrobromide [CeleXA] 40 mg PO DAILY 01/21/21 01/28/21 Metoprolol Succinate [Toprol XL] 25 mg PO DAILY 01/21/21 01/28/21 Multivit-Min/FA/Lycopen/Lutein 1 tab PO DAILY 01/21/21 01/28/21 [Centrum Silver Men Tablet] Tadalafil [Cialis] 5 mg PO DAILY 01/21/21 01/28/21 Tamsulosin [Flomax] 0.4 mg PO DAILY 01/21/21 01/28/21 rOPINIRole HCL [Requip] 2 mg PO HS 01/21/21 01/28/21 Allergies Allergy/AdvReac Type Severity Reaction Status Date / Time No Known Allergies Allergy Verified 01/28/21 21:51 Review of Systems ROS Statement: Those systems with pertinent positive or pertinent negative responses have been documented in the HPI. ROS Other: All systems not noted in ROS Statement are negative. Past Medical History Past Medical History: Coronary Artery Disease (CAD), Cancer, Diabetes Mellitus, Eye Disorder, Hyperlipidemia, Hypertension Additional Past Medical History / Comment(s): SKIN CA, CATARACT LEFT EYE History of Any Multi-Drug Resistant Organisms: None Reported Past Surgical History: Appendectomy, Heart Catheterization With Stent Additional Past Surgical History / Comment(s): SKIN CANCER Past Anesthesia/Blood Transfusion Reactions: No Reported Reaction Date of Last Stent Placement:: 12/31/2008 Past Psychological History: Anxiety Smoking Status: Never smoker Past Alcohol Use History: Occasional Past Drug Use History: None Reported - Past Family History Brother(s) Family Medical History: Cancer Additional Family Medical History / Comment(s): THROAT CANCER General Exam - General Exam Comments Initial Comments: General: Appears sleepy in bed. HEAD: Normal with no signs of head trauma. EYES: PERRLA, EOMI, conjunctiva normal, no discharge. Pupils are 3 mm and equal bilaterally. ENT: Hearing grossly intact, normal oropharynx. RESPIRATORY: Clear breath sounds bilaterally. No wheezes, rales, or rhonchi. C/V: Irregular rate and rhythm. S1 and S2 auscultated. Peripheral pulses are 2+ and intact throughout. No peripheral edema. ABD: Abd is soft, nontender, nondistended EXT: Normal range of motion, no obvious deformity SKIN: No rashes or lesions observed on exposed skin. NEURO: Alert and oriented 1-2. Patient is sleepy. He has no focal deficits. Cerebellar function is intact as evident by normal finger to nose testing. His normal strength and sensation. No obvious deficits. He may have slight left- sided facial droop, however on retesting appears to be normal. NIH stroke scale is 2, getting 1 point each for month incorrect as well as slightly decreased level of consciousness. Course Vital Signs 01/28/21 01/28/21 19:36 21:48 Temperature 97.6 F Pulse Rate 111 H 108 H Respiratory 24 16 Rate Blood Pressure 101/79 112/94 O2 Sat by Pulse 95 95 Oximetry Medical Decision Making - Medical Decision Making Based on the patient's presentation and physical exam, I'm concerned for acute altered mental status and the patient. This is been ongoing for multiple days. He does have a NIH scale of 2 secondary to the altered mental status and lethargy, and therefore we will obtain a CT head and CTA head. Stroke pager will not be activated at this time as I low suspicion and have high suspicion for other etiology at this time. There is also been ongoing for multiple days and is not acute. There is no known trauma. No other deficits. All to mental status labs will be obtained. Cardiac labs will be obtained as well as an EKG and chest x-ray. Patient was in agreement with this plan as were his family members. He'll be connected to continuous cardiac monitoring while he is here in the department. EKG shows no signs of acute ischemia. Shows chronic A. fib. Labs are re markable for a chronically elevated BUN/creatinine. Troponin is negative. Urinalysis is unremarkable. UDS is positive for benzos which she is not prescribed as well as tricyclics. Patient's CT brain revealed possible artifact in the margoth, however they recommend MRI follow-up. Otherwise there is no acute intracranial process. There are chronic changes. CTA of the brain and neck revealed no evidence for acute arterial occlusion. Patient's chest x-ray reveals atelectasis but no other acute cardiopulmonary process. On review, patient's does have exposure to Ativan and takes it 3 times a day. Family is uncertain if she is missing pills. No one was at home to check. They will go home and check and report back to us. Otherwise he is not prescribed benzodiazepines and has no exposures. This is a possible cause for his current presentation, however I do believe he should be admitted for MRI and neurological evaluation tomorrow. I agreement this plan. I spoke with the admitting attending, Dr. Junior who was also agreement this plan. Patient will be admitted to telemetry bed in serous condition.I consulted neurology Dr. Willoughby to evaluate the patient in the morning.Patient's Eliquis will be held until MRI scan is complete. - Lab Data Result diagrams: 01/28/21 18:16 01/28/21 18:16 Lab Results 01/28/21 01/28/21 01/28/21 Range/Units 18:16 18:16 18:16 WBC 8.4 (3.8-10.6) k/uL RBC 4.33 (4.30-5.90) m/uL Hgb 14.0 (13.0-17.5) gm/dL Hct 41.7 (39.0-53.0) % MCV 96.3 (80.0-100.0) fL MCH 32.2 (25.0-35.0) pg MCHC 33.5 (31.0-37.0) g/dL RDW 12.2 (11.5-15.5) % Plt Count 136 L (150-450) k/uL MPV 8.5 Neutrophils % 76 % Lymphocytes % 13 % Monocytes % 6 % Eosinophils % 3 % Basophils % 0 % Neutrophils # 6.4 (1.3-7.7) k/uL Lymphocytes # 1.1 (1.0-4.8) k/uL Monocytes # 0.5 (0-1.0) k/uL Eosinophils # 0.2 (0-0.7) k/uL Basophils # 0.0 (0-0.2) k/uL PT 11.8 (9.0-12.0) sec INR 1.1 (<1.2) APTT 23.3 (22.0-30.0) sec Sodium 134 L (137-145) mmol/L Potassium 4.8 (3.5-5.1) mmol/L Chloride 107 (98-107) mmol/L Carbon Dioxide 20 L (22-30) mmol/L Anion Gap 7 mmol/L BUN 29 H (9-20) mg/dL Creatinine 1.34 H (0.66-1.25) mg/dL Est GFR (CKD-EPI)AfAm 57 (>60 ml/min/1.73 sqM) Est GFR (CKD-EPI)NonAf 50 (>60 ml/min/1.73 sqM) Glucose 147 H (74-99) mg/dL Plasma Lactic Acid Tanner (0.7-2.0) mmol/L Calcium 8.6 (8.4-10.2) mg/dL Total Bilirubin 1.7 H (0.2-1.3) mg/dL AST 20 (17-59) U/L ALT 12 (4-49) U/L Alkaline Phosphatase 57 (38-126) U/L Ammonia (<30) umol/L Troponin I (0.000-0.034) ng/mL Total Protein 6.3 (6.3-8.2) g/dL Albumin 3.6 (3.5-5.0) g/dL Urine Color Urine Appearance (Clear) Urine pH (5.0-8.0) Ur Specific [place] (1.001-1.035) Urine Protein (Negative) Urine Glucose (UA) (Negative) Urine Ketones (Negative) Urine Blood (Negative) Urine Nitrite (Negative) Urine Bilirubin (Negative) Urine Urobilinogen (<2.0) mg/dL Ur Leukocyte Esterase (Negative) Urine Opiates Screen (NotDetected) Ur Oxycodone Screen (NotDetected) Urine Methadone Screen (NotDetected) Ur Propoxyphene Screen (NotDetected) Ur Barbiturates Screen (NotDetected) U Tricyclic Antidepress (NotDetected) Ur Phencyclidine Scrn (NotDetected) Ur Amphetamines Screen (NotDetected) U Methamphetamines Scrn (NotDetected) U Benzodiazepines Scrn (NotDetected) Urine Cocaine Screen (NotDetected) U Marijuana (THC) Screen (NotDetected) Serum Alcohol <10 mg/dL 01/28/21 01/28/21 01/28/21 Range/Units 18:16 18:16 21:25 WBC (3.8-10.6) k/uL RBC (4.30-5.90) m/uL Hgb (13.0-17.5) gm/dL Hct (39.0-53.0) % MCV (80.0-100.0) fL MCH (25.0-35.0) pg MCHC (31.0-37.0) g/dL RDW (11.5-15.5) % Plt Count (150-450) k/uL MPV Neutrophils % % Lymphocytes % % Monocytes % % Eosinophils % % Basophils % % Neutrophils # (1.3-7.7) k/uL Lymphocytes # (1.0-4.8) k/uL Monocytes # (0-1.0) k/uL Eosinophils # (0-0.7) k/uL Basophils # (0-0.2) k/uL PT (9.0-12.0) sec INR (<1.2) APTT (22.0-30.0) sec Sodium (137-145) mmol/L Potassium (3.5-5.1) mmol/L Chloride (98-107) mmol/L Carbon Dioxide (22-30) mmol/L Anion Gap mmol/L BUN (9-20) mg/dL Creatinine (0.66-1.25) mg/dL Est GFR (CKD-EPI)AfAm (>60 ml/min/1.73 sqM) Est GFR (CKD-EPI)NonAf (>60 ml/min/1.73 sqM) Glucose (74-99) mg/dL Plasma Lactic Acid [place]anner 0.9 (0.7-2.0) mmol/L Calcium (8.4-10.2) mg/dL Total Bilirubin (0.2-1.3) mg/dL AST (17-59) U/L ALT (4-49) U/L Alkaline Phosphatase (38-126) U/L Ammonia <9 (<30) umol/L Troponin I <0.012 (0.000-0.034) ng/mL Total Protein (6.3-8.2) g/dL Albumin (3.5-5.0) g/dL Urine Color Yellow Urine Appearance Clear (Clear) Urine pH 5.0 (5.0-8.0) Ur Specific [place] 1.048 H (1.001-1.035) Urine Protein Negative (Negative) Urine Glucose (UA) Negative (Negative) Urine Ketones Negative (Negative) Urine Blood Negative (Negative) Urine Nitrite Negative (Negative) Urine Bilirubin Negative (Negative) Urine Urobilinogen <2.0 (<2.0) mg/dL Ur Leukocyte Esterase Negative (Negative) Urine Opiates Screen Not Detected (NotDetected) Ur Oxycodone Screen Not Detected (NotDetected) Urine Methadone Screen Not Detected (NotDetected) Ur Propoxyphene Screen Not Detected (NotDetected) Ur Barbiturates Screen Not Detected (NotDetected) U Tricyclic Antidepress Detected H (NotDetected) Ur Phencyclidine Scrn Not Detected (NotDetected) Ur Amphetamines Screen Not Detected (NotDetected) U Methamphetamines Scrn Not Detected (NotDetected) U Benzodiazepines Scrn Detected H (NotDetected) Urine Cocaine Screen Not Detected (NotDetected) U Marijuana (THC) Screen Not Detected (NotDetected) Serum Alcohol mg/dL - EKG Data -: EKG Interpreted by Me EKG Comments: 12-lead Electrocardiogram Interpretation Note EKG was reviewed and interpreted by myself. 12-lead ECG performed at 2013 is interpreted by me as revealing atrial fibrillation with wide QRS at a rate of 110 beats per minute. Left axis deviation. [place] interval is unobtainable, QRS duration is 160 ms, QTc is 546 milliseconds.. There were no ST or T wave abnormalities to suggest myocardial ischemia or injury. R wave progression across the precordium was satisfactory. By my interpretation this EKG is non- diagnostic for acute ischemia. In comparison to prior EKGs, there is no change. Disposition Clinical Impression: Atrial fibrillation, History of benzodiazepine use, Altered mental status, Weakness Disposition: ADMITTED IP TO THIS HOSP Condition: Serious Referrals: Lalo Louie MD [Primary Care Provider] - 1-2 days
[2021-01-28] MEDS ORDERED: SODIUM CHLORIDE 0.9% 1,000 ML IV STA (22:51)
[2021-01-28] MEDS ORDERED: ACETAMINOPHEN TAB 325 MG TAB PO PRN (23:04)
--- NOTE | 2021-01-28 23:18 | XR ---
EXAMINATION TYPE: XR chest 1V portable DATE OF EXAM: 01/28/2021 COMPARISON: 01/21/2021 HISTORY: Altered mental status TECHNIQUE: Single view FINDINGS: There is some mild pleural reaction and atelectasis in the left lower lobe behind the heart . There is no heart failure. Right lung is clear. Heart size is normal. There are chest leads. Bony t horax is intact. Mediastinum appears normal. There is no sign of hilar mass. IMPRESSION: There is some pleural reaction and atelectasis left lateral lung base which is mostly new compared to recent exam. No heart failure.
[2021-01-29 00:05] LABS: VBG PH 7.34 (7.31-7.41)
[2021-01-29] MEDS: SODIUM CHLORIDE 0.9% 1,000 ML IV SCH ×2 (00:10→17:07)
[2021-01-29 01:25] LABS: Glucose,Whole Blood 110 mg/dL (75-99)
--- NOTE | 2021-01-29 04:01 | P.HPIM ---
History of Present Illness H&P Date: 01/28/21 Chief Complaint: Worsening mental status 80-year-old male with atrial fibrillation on Eliquis, coronary artery disease, diabetes hypertension Patient brought in by family due to worsening mental status, increased confusion, slurred speech,. Per family patient has been worsening since discharge. Of note patient was discharged from the hospital about a week ago, he was adm itted for similar complaints of confusion and aggressive behavior, extensive workup was done in the ED at the time everything came back within normal limits. Patient improved throughout his hospital stay eventually he was alert and oriented to self placed time and situation. Health care providers offered placement for the patient for rehab however family declined and chose to take him home. Upon this presentation similar story of gradual increasing lethargy and confusion since she's been home. No report of any GI bleeding or chest pain no reported fevers or chills no report of coughing chest pain or shortness of breath. Patient unable to provide any meaningful history. Due to mental status and slurred speech Extensive workup done in the ED for much unremarkable CT of the brain and CT angiography the head and neck was unremarkable., Chest x-ray showed possible left-sided atelectasis, EKG showed right bundle branch block similar to before Note urine drug screen was positive for benzodiazepines which is not a medication that is prescribed for the patient family commented on that thinking that maybe the patient was accidentally taking the 's prescription. No further information available at this time Patient admitted for close monitoring and neurologic evaluation Review of Systems ROS unobtainable: due to mental status Past Medical History Past Medical History: Coronary Artery Disease (CAD), Cancer, Diabetes Mellitus, Eye Disorder, Hyperlipidemia, Hypertension Additional Past Medical History / Comment(s): SKIN CA, CATARACT LEFT EYE History of Any Multi-Drug Resistant Organisms: Unobtainable Past Surgical History: Appendectomy, Heart Catheterization With Stent Additional Past Surgical History / Comment(s): SKIN CANCER Past Anesthesia/Blood Transfusion Reactions: Unable to Obtain Date of Last Stent Placement:: 12/31/2008 Past Psychological History: Anxiety Smoking Status: Unknown if ever smoked Past Alcohol Use History: Unable to Obtain Past Drug Use History: Unable to Obtain - Past Family History Brother(s) Family Medical History: Cancer Additional Family Medical History / Comment(s): THROAT CANCER Medications and Allergies Home Medications Medication Instructions Recorded Confirmed Type Aspirin 81 mg PO DAILY 09/10/13 01/28/21 History metFORMIN HCL [Glucophage] 500 mg PO BID 09/10/13 01/28/21 History Apixaban [Eliquis] 5 mg PO BID 01/21/21 01/28/21 History Citalopram Hydrobromide [CeleXA] 40 mg PO DAILY 01/21/21 01/28/21 History Metoprolol Succinate [Toprol XL] 25 mg PO DAILY 01/21/21 01/28/21 History Multivit-Min/FA/Lycopen/Lutein 1 tab PO DAILY 01/21/21 01/28/21 History [Centrum Silver Men Tablet] Tadalafil [Cialis] 5 mg PO DAILY 01/21/21 01/28/21 History Tamsulosin [Flomax] 0.4 mg PO DAILY 01/21/21 01/28/21 History rOPINIRole HCL [Requip] 2 mg PO HS 01/21/21 01/28/21 History Allergies Allergy/AdvReac Type Severity Reaction Status Date / Time No Known Allergies Allergy Verified 01/28/21 21:51 Physical Exam Vitals: Vital Signs Temp Pulse Pulse Resp BP BP Pulse Ox 01/29/21 02:00 107 H 16 01/29/21 00:42 107 H 16 01/29/21 00:19 97.4 F L 104 H 16 136/92 99 01/28/21 23:50 107 H 16 109/60 98 01/28/21 21:48 108 H 16 112/94 95 01/28/21 19:36 97.6 F 111 H 24 101/79 95 Intake and Output 01/28/21 01/28/21 01/29/21 14:59 22:59 06:59 Other: Voiding Method Toilet Urinal Diaper Weight 81.647 kg 81.647 kg Constitutional: Patient sleeping not cooperating with exam became irritated when attempted to break mop Eyes: Patient resisted opening his eyes ENMT: NC/AT Neck: Patient resisting neck movement, no JVD No carotid bruits No thyromegaly Lungs: Clear to auscultation Clear to percussion Normal respiratory effort, no accessory muscle use Cardiovascular: Heart regular in rate and rhythm, No murmurs, gallops, or rubs No peripheral edema Abdominal: Soft Nontender, no guarding, rebound or rigidity Abdomen moving with respiration Normoactive bowel sounds No hepatomegaly, No splenomegaly No palpable mass No abdominal wall hernia noted Skin: Normal temperature, tone, texture, turgor No induration No subcutaneous nodules No rash, lesions No ulcers Extremities: No digital cyanosis No clubbing Pedal pulses intact and symmetrical Radial pulses intact and symmetrical No calf tenderness Psychiatric: Patient sleeping refusing to wake up, becomes irritated easily Neuro unable to assess neurologically at this time Lymphatics: no palpable cervical or supraclavicular , or inguinal lymph nodes Results CBC & Chem 7: 01/28/21 18:16 01/28/21 18:16 Labs: Abnormal Lab Results - Last 24 Hours (Table) 01/28/21 01/28/21 01/28/21 Range/Units 18:16 18:16 21:25 Plt Count 136 L (150-450) k/uL VBG HCO3 (24-28) mmol/L Sodium 134 L (137-145) mmol/L Carbon Dioxide 20 L (22-30) mmol/L BUN 29 H (9-20) mg/dL Creatinine 1.34 H (0.66-1.25) mg/dL Glucose 147 H (74-99) mg/dL POC Glucose (mg/dL) (75-99) mg/dL Total Bilirubin 1.7 H (0.2-1.3) mg/dL Ur Specific [place] 1.048 H (1.001-1.035) U Tricyclic Antidepress Detected H (NotDetected) U Benzodiazepines Scrn Detected H (NotDetected) 01/28/21 01/29/21 Range/Units 23:58 01:24 Plt Count (150-450) k/uL VBG HCO3 20 L (24-28) mmol/L Sodium (137-145) mmol/L Carbon Dioxide (22-30) mmol/L BUN (9-20) mg/dL Creatinine (0.66-1.25) mg/dL Glucose (74-99) mg/dL POC Glucose (mg/dL) 110 H (75-99) mg/dL Total Bilirubin (0.2-1.3) mg/dL Ur Specific [place] (1.001-1.035) U Tricyclic Antidepress (NotDetected) U Benzodiazepines Scrn (NotDetected) Thrombosis Risk Factor Assmnt - Choose All That Apply Each Factor Represents 1 point: Obesity (BMI >25) Each Risk Factor Represents 3 Points: Age 75 years or older Thrombosis Risk Factor Assessment Total Risk Factor Score: 4 Thrombosis Risk Factor Assessment Level: Moderate Risk Assessment and Plan Assessment: Acute metabolic encephalopathy suspected accidental ingestion of benzodiazepine Continue to monitor patient Neurochecks CT of the brain and CT angiogram of the head and neck was unremarkable for any acute pathology Blood work overall unremarkable Urine drug screen positive for benzodiazepine which is a medication not prescribed to the patient Patient vaccinated against Covid, Covid testing negative Check MRI in the morning Neuro consultation Chronic conditions Atrial fibrillation on Eliquis History of coronary artery disease Diabetes mellitus Hypertension CKD 3 stable Resume home medications Patient is full code Anticipated length of stay less than 2 midnights Anticipated discharge to senior care
[2021-01-29 06:53] LABS: Basophils % (A) 0 %; Eosinophils # (A) 0.2 k/uL (0-0.7); Eosinophils % (A) 4 %; HGB 13.3 gm/dL (13.0-17.5); Lymphocytes # (A) 1.5 k/uL (1.0-4.8); Lymphocytes % (A) 30 %; MCH 32.4 pg (25.0-35.0); MCHC 33.2 g/dL (31.0-37.0); MCV 97.7 fL (80.0-100.0); Mean Platelet Volume 8.4; Monocytes # (A) 0.4 k/uL (0-1.0); Monocytes % (A) 8 %; Neutrophils # (A) 2.8 k/uL (1.3-7.7); Neutrophils % (A) 55 %; Platelet Count 139 k/uL (150-450); RDW 12.2 % (11.5-15.5)
[2021-01-29 07:03] LABS: Albumin 2.9 g/dL (3.5-5.0); Calcium 8.4 mg/dL (8.4-10.2); Potassium 4.2 mmol/L (3.5-5.1); Total Protein 5.5 g/dL (6.3-8.2)
[2021-01-29 07:18] LABS: Glucose,Whole Blood 82 mg/dL (75-99)
[2021-01-29] MEDS: TAMSULOSIN 0.4 MG CAP.ER.24H PO SCH (09:00)
[2021-01-29] MEDS: ASPIRIN 81 MG PO SCH (09:00)
[2021-01-29] MEDS ORDERED: metFORMIN 500 MG TAB PO SCH (09:00)
[2021-01-29] MEDS: METOPROLOL SUCCINATE (ER) 25 MG TAB.ER.24H PO SCH (09:00)
--- NOTE | 2021-01-29 11:45 | P.CNNES ---
History of Present Illness Consult date: 01/29/21 Requesting physician: Víctor Ibarra Reason for Consult: AMS, possible benzodiazepine overdose, lethargy History of Present Illness: Patient is a 80-year-old male came to the hospital by ambulance yesterday at 7:34 PM. Patient not able to provide much history, as he states that he does not remember what happened, and how he got to the hospital. He thinks that he may [place] in the [place] in the town but he was not sure. He is not sure if he was driving himself to home or somebody was taking him home. He apparently passed out and woke up in the hospital. He does not remember how long he was out for. He denies any tongue bite or loss of control of urine. He states that he lives with his who herself has significant problem with her legs. He states that he takes care of his in her medications. He himself takes 7 pills a day and his 10. He thinks he may have taken his 's medication by mistake, as medications were "all over the place". He does not know why he takes Requip. He never had this episode before. As per EMS flow sheet, when they arrived, patient was found in the chair in his living room. Patient is alert to verbal stimuli but shows general malaise, lethargy and weakness. Per his on location, he had a similar episode last week. This episodes is reported to have started late during the morning. No recent history of falls or trauma. No history of strokes. Patient has atrial fibrillation on anticoagulation. Patient is type II diabetic. Patient denied chest pain or dyspnea but does show a slight increased work of breathing the rapid respiratory rate. Lungs are clear. Normal pulse oximetry. [place] stroke scale performed showed some aphasia with weakness bilaterally. Patient was difficult to keep aroused. Patient's blood pressure was 96/68, pulse is 112, respiration 26 saturation 95%. Blood sugar 140. Patient's blood test shows normal WBC moving 13.3 platelets and 39 PT/PTT normal, electrolytes are normal, BUN 29 creatinine 1.34. Hepatic panel normal. Coronavirus negative. Urine drug screen positive for tricyclics and eboni odiazepine. Blood alcohol level negative. Troponin negative. His BUN and creatinine has improved to [address] head showed no acute intracranial hemorrhage, midline shift or mass effect. Compared to the prior study, there is diffuse low attenuation involving the margoth with a discrete focus of low attenuation the left side of the margoth which could be reflective of ischemia, though artifact at this level could have a similar appearance. Trace patchy low attenuation in the deep white matter and periventricular region likely on the basis of chronic microvascular ischemic changes. CTA of head and neck showed no evidence of occlusion, stenosis or aneurysm. EKG shows wide QRS rhythm with premature ventricular complexes or fusion complexes. Chest x-ray showed some pleural reaction and atelectasis left lateral lung base which is mostly new compared to recent exam. No heart failure. Patient's home medications shows metformin, aspirin 81 mg, Requip 2 mg daily at bedtime, Flomax, Apixaban 5 mg twice a day, Celexa 40 mg, metoprolol 25 mg, multivitamins and Cialis. Patient states that he smokes cigars sometimes. Never been a heavy smoker. He seldom drinks alcohol. No drugs. He has 3 grownup children. I tried to call patient's , but she did not pear picker the phone. I spoke to patient's daughter on the phone. She tells me that yesterday her dad was making dinner, when he apparently fell to his knees, became unresponsive. He did not fall to the floor. Apparently his legs give out under. Patient's uses a walker, but she somehow managed to get him to the chair and called EMS. No report of seizure-like activity, tongue bite or loss of control of urine. When they came, he was slurring, couldn't talk, eyes looked terrible, hard time breathing, very confused, did not know anybody. He does not remember anything what happened. Patient's daughter believes that this confusion is going on for a while, for at least 5-6 months. Patient's believes may be coming up with dementia as well. Patient's daughter states that a similar event happened a week ago when he went to the restroom. Patient's daughter was at the home, when she heard something in the back of the bathroom. She went in and saw patient was trying to get dressed very very confused, all stuff in his pockets was laying out on the floor, could not get dressed. Patient's daughter had to actually had him dress up, which has never happened before. Review of Systems As above in detail. All other 14 points of review of systems reviewed and remar darell. Past Medical History Past Medical History: Coronary Artery Disease (CAD), Cancer, Diabetes Mellitus, Eye Disorder, Hyperlipidemia, Hypertension Additional Past Medical History / Comment(s): SKIN CA, CATARACT LEFT EYE History of Any Multi-Drug Resistant Organisms: Unobtainable Past Surgical History: Appendectomy, Heart Catheterization With Stent Additional Past Surgical History / Comment(s): SKIN CANCER Past Anesthesia/Blood Transfusion Reactions: Unable to Obtain Date of Last Stent Placement:: 12/31/2008 Past Psychological History: Anxiety Smoking Status: Unknown if ever smoked Past Alcohol Use History: Unable to Obtain Past Drug Use History: Unable to Obtain - Past Family History Brother(s) Family Medical History: Cancer Additional Family Medical History / Comment(s): THROAT CANCER Medications and Allergies Home Medications Medication Instructions Recorded Confirmed Type Aspirin 81 mg PO DAILY 09/10/13 01/28/21 History metFORMIN HCL [Glucophage] 500 mg PO BID 09/10/13 01/28/21 History Apixaban [Eliquis] 5 mg PO BID 01/21/21 01/28/21 History Citalopram Hydrobromide [CeleXA] 40 mg PO DAILY 01/21/21 01/28/21 History Metoprolol Succinate [Toprol XL] 25 mg PO DAILY 01/21/21 01/28/21 History Multivit-Min/FA/Lycopen/Lutein 1 tab PO DAILY 01/21/21 01/28/21 History [Centrum Silver Men Tablet] Tadalafil [Cialis] 5 mg PO DAILY 01/21/21 01/28/21 History Tamsulosin [Flomax] 0.4 mg PO DAILY 01/21/21 01/28/21 History rOPINIRole HCL [Requip] 2 mg PO HS 01/21/21 01/28/21 History Allergies Allergy/AdvReac Type Severity Reaction Status Date / Time No Known Allergies Allergy Verified 01/28/21 21:51 Physical Examination - Vital Signs Vital Signs: Vital Signs Temp Pulse Pulse Resp BP BP Pulse Ox 01/29/21 07:00 97.6 F 114 H 16 112/74 96 01/29/21 02:00 107 H 16 01/29/21 00:42 107 H 16 01/29/21 00:19 97.4 F L 104 H 16 136/92 99 01/28/21 23:50 107 H 16 109/60 98 01/28/21 21:48 108 H 16 112/94 95 01/28/21 19:36 97.6 F 111 H 24 101/79 95 Intake and Output 01/28/21 01/29/21 01/29/21 22:59 06:59 14:59 Other: Voiding Method Toilet Urinal Diaper # Voids 2 Weight 81.647 kg 81.647 kg Patient is an elderly male, in no acute distress. Patient is alert awake oriented to time place and person. Patient states it is Tuesday (actually ), and it is the end of the month but he does know it is January 2021. He states that he is in [facility] in [facility]. He states current president is Anibal Mercado and the last one was Carmelo. When I given multiple choices, he was able to recognize Mr. Eliecer Alejandra correctly. Speech and language functions are normal. Attention, concentration and fund of knowledge is adequate. Detailed testing deferred. On cranial examination, pupils are small, round and minimally reacting to light, visual adrian are full on confrontation, extraocular muscles are intact with no nystagmus. Face is symmetric, tongue protrudes to the midline. Palatal elevation and sensation normal, hearing is slightly decreased and shoulder shrug normal, facial sensation normal. Shoulder shrug normal. On muscle strength testing, there is no pronator drift and the strength is normal in arms and legs distally and proximally. Deep tendon reflexes are overall diminished, and plantars downgoing bilaterally. Sensory to touch is equal with no neglect. Cerebellar function showed no ataxia for [id number] testing. No ataxia for [id number] testing. No dysdiadochokinesia. Tone and bulk of muscles normal. Gait deferred. On general examination, there is no carotid bruit or murmur, S1-S2 audible. Abdomen is soft nontender. Chest is clear. Peripheral pulses are present. No edema. Results - Laboratory Findings CBC and BMP: 01/29/21 06:24 01/29/21 06:24 Abnormal Lab Findings: Abnormal Labs 01/28/21 01/28/21 01/28/21 18:16 18:16 21:25 RBC Plt Count 136 L VBG HCO3 Sodium 134 L Chloride Carbon Dioxide 20 L BUN 29 H Creatinine 1.34 H Glucose 147 H POC Glucose (mg/dL) Total Bilirubin 1.7 H Total Protein Albumin Ur Specific [place] 1.048 H U Tricyclic Antidepress Detected H U Benzodiazepines Scrn Detected H 01/28/21 01/29/21 01/29/21 23:58 01:24 06:24 RBC 4.10 L Plt Count 139 L VBG HCO3 20 L Sodium Chloride Carbon Dioxide BUN Creatinine Glucose POC Glucose (mg/dL) 110 H Total Bilirubin Total Protein Albumin Ur Specific [place] U Tricyclic Antidepress U Benzodiazepines Scrn 01/29/21 06:24 RBC Plt Count VBG HCO3 Sodium Chloride 111 H Carbon Dioxide BUN 24 H Creatinine 1.30 H Glucose POC Glucose (mg/dL) Total Bilirubin 2.0 H Total Protein 5.5 L Albumin 2.9 L Ur Specific [place] U Tricyclic Antidepress U Benzodiazepines Scrn Assessment and Plan Assessment: * Episode of syncope with subsequent altered mental status, unclear etiology. Rule out transient global amnesia. Rule out seizure, TIA or transient metabolic encephalopathy. Rule out accidental ingestion of 's medication. Patient's urine was positive for benzodiazepine and tricyclics, and none of those medications he takes. Patient's does take Ativan 1 mg 3 times a day, and Seroquel, which probably would not contribute to presence of tricyclics in the urine. We will try to obtain a repeat urine drug screen. Current neurological examination is normal. * Mildly elevated BUN/creatinine 29/1.34, improving. * Coronary artery disease * Diabetes hyperlipidemia * Hypertension * Rule out underlying mild cognitive impairment. * History of atrial fibrillation on anticoagulation. Plan: * Resume anticoagulation with Eliquis to prevent strokes related to atrial fi brillation. * Patient undergoing MRI of the brain. * EEG to rule out any epileptiform activity. * CTA of head and neck shows no significant stenosis, occlusion or aneurysm. * 2-D echo. * B12, folate, TSH, hemoglobin A1c and fasting lipid panel. Ammonia is normal <9. * Discussed with patient's daughter in detail. * Neurology will follow.
[2021-01-29 12:21] LABS: Glucose,Whole Blood 117 mg/dL (75-99)
--- NOTE | 2021-01-29 14:54 | EEG ---
ELECTROENCEPHALOGRAM REPORT DATE OF SERVICE: 01/29/2021 PREAMBLE: This is an 80-year-old male with episode of altered mental status and loss of memory. Rule out any seizure activity. EEG FINDINGS: This is a 21-channel portable EEG recorded with video component, utilizing 10/20 international system with referential and bipolar montages. Background consists of moderately well-developed and regulated mixed frequencies of 7 hertz theta, with some 8 hertz alpha activity seen in bihemispheric region. Background seems to be reactive to eye opening and closing. Photic driving response was not seen. Some drowsiness was seen with appearance of bilaterally symmetric theta frequency rhythm. Deeper stages of sleep were not seen. No focal or generalized epileptiform activity was seen. EKG channel showed some arrhythmia. IMPRESSION: This is a borderline abnormal EEG due to minimal background slowing. This may suggest very mild cerebral dysfunction as can be seen with encephalopathy or medication effect. No epileptiform activity was seen. MMODL / IJN: [id number] / MTDD
--- NOTE | 2021-01-29 15:21 | MR ---
EXAMINATION TYPE: MR brain wo/w con DATE OF EXAM: 01/29/2021 COMPARISON: CT brain from yesterday and one week earlier. HISTORY: Altered mental status. Acute onset neuro deficit on admission one day earlier TECHNIQUE: Multiplanar, multisequence images of the brain and brainstem is performed without and with IV contras t, utilizing 8.5 mL intravenous Gadavist . FINDINGS: Exam slightly suboptimal as there is some motion artifact degradation. Diffusion weighted i mages demonstrate no evidence of a recent infarct or other diffusion abnormality with particular atte ntion to the left margoth at area of recent CT concern. There is moderate ventricular and sulcal promine nce. There are focal and confluent areas of T2 hyperintensity throughout the white matter bilaterally greatest in the periventricular levels. Involvement in the margoth is present. Midline structures demonstrate normal morphology. The craniocervical junction appears within normal limits. Post contrast images demonstrate no abnormal enhancement. The dural venous sinuses appear pa tent. Mild mucosal thickening involving ethmoid sinuses bilaterally. Small mucous retention cyst or p olyp in the posterior right maxillary sinus redemonstrated. Globes are intact bilaterally. IMPRESSION: 1. No MRI evidence for recent infarct. 2. Redemonstration of moderate to borderline severe diffuse cerebral atrophy and chronic small vessel ischemic change.
[2021-01-29 17:30] LABS: Glucose,Whole Blood 118 mg/dL (75-99)
[2021-01-29] MEDS: APIXABAN 5 MG TAB PO SCH ×2 (17:35→21:13)
--- NOTE | 2021-01-29 18:59 | P.PN ---
<Ravi Boone - Last Filed: 01/29/21 18:42> Subjective Progress Note Date: 01/29/21 Hospital course: Patient is a very pleasant 80-year-old male with a past medical history of CAD with stents, hypertension, hyperlipidemia, atrial fibrillation on anticoagulation with Eliquis, type II cta-vtiuazi-hclnjtvim diabetes mellitus, BPH, and dementia. Patient was brought into hospital by family due to worsening mental status, increased confusion, and slurred speech,. Per family patient has been progressively worsening and that they need assistance caring for him secondary to his persistently worsening confusion and aggressive behaviors. Patient was seen and fully evaluated in the emergency department CT brain was completed negative for acute intercranial process. CTA head and neck also unremarkable. Chest x-ray did reveal possible left-sided atelectasis. EKG revealing a right bundle branch block, unchanged from previous EKG completed 01/22/21. Urine drug screen was positive for benzodiazepines, patient is not currently prescribed to take benzodiazepines. Possible concerns that patient may accidentally have taken his 's medications. Patient was admitted under our services with consultation to neurology. EEG and MRI to be completed. Physical exam: Patient seen and fully evaluated at the bedside. He was alert to person and place confused to time and situation. Speech was clear. Patient reports it was the year 1980 and that Anibal Mercado was our president. Patient was where that he was in the hospital and stated he was at [facility]. Patient denied having any headache, lightheadedness, dizziness, changes in his vision or hearing, chest pain or palpitations, shortness of breath, or experie ncing any numbness/tingling/weakness in his extremities. Patient able to follow commands and was feeding self breakfast without any noted difficulties. Vital signs reviewed and stable. General: Nontoxic, no distress and appears stated age. Derm: Skin warm and dry, normal coloration for ethnicity. Head: Atraumatic, normocephalic and symmetric. Eyes: EOMs intact, no lid lag, and anicteric sclera Mouth: no lip lesions, mucus membranes moist Cardiovascular: regular rate and rhythm with normal S1S2, no murmur, positive posterior tibial pulses bilaterally, and cap refill < 2 seconds. Lungs: Respirations even, regular, and unlabored on room air. Lungs CTA bilaterally, no rhonchi, no rales, no wheezing, and no accessory muscle usage. Abdominal: soft, nontender to palpation, no guarding, no appreciable organomegaly Ext: ROM intact. No gross muscle atrophy, no edema, no contractures Neuro: Speech clear, face symmetrical and CN II-XII grossly intact with no noted focal neuro deficits Psych: Alert and oriented to person, place, time, and situation. Appropriate and pleasant affect. Assessment and Plan of Care: Acute metabolic encephalopathy secondary to suspected accidental ingestion of benzodiazepines vs worsening dementia Dementia Confusion Slurred speech -Continue to monitor patient -Neurochecks -CT of the brain and CT angiogram of the head and neck was unremarkable for any acute pathology -Blood work overall unremarkable -Urine drug screen positive for benzodiazepine which is a medication not prescribed to the patient -Patient vaccinated against Covid, Covid testing negative -MRI and EEG pending results. -Neurology following, appreciate further recommendations. -Safe and supportive care with redirection and assistance as needed. Atrial fibrillation -Continue anticoagulation with Eliquis Type II izl-kyxvsxh-kfuolejoe diabetes mellitus -Hold Glucophage in place patient on glycemic protocol with NovoLog sliding scale. Hypertension Monitor vital signs and continue daily medication regimen with metoprolol. BPH Continue daily medication regimen with Flomax Other chronic medical conditions include: History of coronary artery disease, Hyperlipidemia, and CKD 3 stable Patient is full code Anticipated length of stay less than 2 midnights Anticipated discharge to long-term CODE STATUS: Full code DVT prophylaxis: Eliquis Discussed with: Patient and RN Anticipated discharge date: Clinical course to determine Anticipated discharge place: Home vs SNF A total of 40 minutes was spent on the care of this complex patient more than 50% of the time was spent in counseling and care coordination. Objective - Vital Signs Vital signs: Vital Signs Temp 97.6 F 01/29/21 07:00 Pulse 114 H 01/29/21 07:00 Resp 16 01/29/21 07:00 BP 112/74 01/29/21 07:00 Pulse Ox 96 01/29/21 07:00 Intake & Output 01/28/21 01/29/21 01/29/21 18:59 06:59 18:59 Weight 81.647 kg Other: Voiding Method Toilet Urinal Diaper # Voids 2 - Labs CBC & Chem 7: 01/29/21 06:24 01/29/21 06:24 Labs: Abnormal Lab Results - Last 24 Hours (Table) 01/28/21 01/28/21 01/28/21 Range/Units 18:16 18:16 21:25 RBC (4.30-5.90) m/uL Plt Count 136 L (150-450) k/uL VBG HCO3 (24-28) mmol/L Sodium 134 L (137-145) mmol/L Chloride (98-107) mmol/L Carbon Dioxide 20 L (22-30) mmol/L BUN 29 H (9-20) mg/dL Creatinine 1.34 H (0.66-1.25) mg/dL Glucose 147 H (74-99) mg/dL POC Glucose (mg/dL) (75-99) mg/dL Total Bilirubin 1.7 H (0.2-1.3) mg/dL Total Protein (6.3-8.2) g/dL Albumin (3.5-5.0) g/dL Ur Specific [place] 1.048 H (1.001-1.035) U Tricyclic Antidepress Detected H (NotDetected) U Benzodiazepines Scrn Detected H (NotDetected) 01/28/21 01/29/21 01/29/21 Range/Units 23:58 01:24 06:24 RBC 4.10 L (4.30-5.90) m/uL Plt Count 139 L (150-450) k/uL VBG HCO3 20 L (24-28) mmol/L Sodium (137-145) mmol/L Chloride (98-107) mmol/L Carbon Dioxide (22-30) mmol/L BUN (9-20) mg/dL Creatinine (0.66-1.25) mg/dL Glucose (74-99) mg/dL POC Glucose (mg/dL) 110 H (75-99) mg/dL Total Bilirubin (0.2-1.3) mg/dL Total Protein (6.3-8.2) g/dL Albumin (3.5-5.0) g/dL Ur Specific [place] (1.001-1.035) U Tricyclic Antidepress (NotDetected) U Benzodiazepines Scrn (NotDetected) 01/29/21 Range/Units 06:24 RBC (4.30-5.90) m/uL Plt Count (150-450) k/uL VBG HCO3 (24-28) mmol/L Sodium (137-145) mmol/L Chloride 111 H (98-107) mmol/L Carbon Dioxide (22-30) mmol/L BUN 24 H (9-20) mg/dL Creatinine 1.30 H (0.66-1.25) mg/dL Glucose (74-99) mg/dL POC Glucose (mg/dL) (75-99) mg/dL Total Bilirubin 2.0 H (0.2-1.3) mg/dL Total Protein 5.5 L (6.3-8.2) g/dL Albumin 2.9 L (3.5-5.0) g/dL Ur Specific [place] (1.001-1.035) U Tricyclic Antidepress (NotDetected) U Benzodiazepines Scrn (NotDetected) <Senait Ware - Last Filed: 01/29/21 21:52> Subjective Ravi Boone NP rendered care for this patient independently, reviewed the findings and plan as documented in the note above. I did not physically speak with or examine the patient on this date. Objective - Vital Signs Vital signs: Vital Signs Temp 97.6 F 01/29/21 16:22 Pulse 89 01/29/21 19:36 Resp 16 01/29/21 19:36 BP 106/68 01/29/21 16:22 Pulse Ox 97 01/29/21 16:22 Intake & Output 01/29/21 01/29/21 01/30/21 06:59 18:59 06:59 Output Total 300 Balance -300 Weight 81.647 kg Output: Urine 300 Other: Voiding Method Toilet Toilet Toilet Urinal Urinal Urinal Diaper Diaper # Voids 2 8 # Bowel Movements 1 - Labs CBC & Chem 7: 01/29/21 06:24 01/29/21 06:24 Labs: Abnormal Lab Results - Last 24 Hours (Table) 01/28/21 01/28/21 01/29/21 Range/Units 21:25 23:58 01:24 RBC (4.30-5.90) m/uL Plt Count (150-450) k/uL VBG HCO3 20 L (24-28) mmol/L Chloride (98-107) mmol/L BUN (9-20) mg/dL Creatinine (0.66-1.25) mg/dL POC Glucose (mg/dL) 110 H (75-99) mg/dL Total Bilirubin (0.2-1.3) mg/dL Total Protein (6.3-8.2) g/dL Albumin (3.5-5.0) g/dL Ur Specific [place] 1.048 H (1.001-1.035) U Tricyclic Antidepress Detected H (NotDetected) U Benzodiazepines Scrn Detected H (NotDetected) 01/29/21 01/29/21 01/29/21 Range/Units 06:24 06:24 12:20 RBC 4.10 L (4.30-5.90) m/uL Plt Count 139 L (150-450) k/uL VBG HCO3 (24-28) mmol/L Chloride 111 H (98-107) mmol/L BUN 24 H (9-20) mg/dL Creatinine 1.30 H (0.66-1.25) mg/dL POC Glucose (mg/dL) 117 H (75-99) mg/dL Total Bilirubin 2.0 H (0.2-1.3) mg/dL Total Protein 5.5 L (6.3-8.2) g/dL Albumin 2.9 L (3.5-5.0) g/dL Ur Specific [place] (1.001-1.035) U Tricyclic Antidepress (NotDetected) U Benzodiazepines Scrn (NotDetected) 01/29/21 01/29/21 Range/Units 17:29 21:16 RBC (4.30-5.90) m/uL Plt Count (150-450) k/uL VBG HCO3 (24-28) mmol/L Chloride (98-107) mmol/L BUN (9-20) mg/dL Creatinine (0.66-1.25) mg/dL POC Glucose (mg/dL) 118 H 136 H (75-99) mg/dL Total Bilirubin (0.2-1.3) mg/dL Total Protein (6.3-8.2) g/dL Albumin (3.5-5.0) g/dL Ur Specific [place] (1.001-1.035) U Tricyclic Antidepress (NotDetected) U Benzodiazepines Scrn (NotDetected)
[2021-01-29 21:17] LABS: Glucose,Whole Blood 136 mg/dL (75-99)
[2021-01-29] MEDS: INSULIN ASPART (NovoLOG) 100 UNIT/ML VIAL SQ SCH (21:22)
[2021-01-30 01:16] LABS: Folate, Serum 9.7 ng/mL (4.40-31.00)
[2021-01-30] MEDS: SODIUM CHLORIDE 0.9% 1,000 ML IV SCH (01:55)
[2021-01-30 04:20] LABS: Amphetamine Screen,Urine Not Detected (NotDetected); Barbiturate Screen,Urine Not Detected (NotDetected); Benzodiazepines Screen,Urine Detected (NotDetected); Cocaine Screen,Urine Not Detected (NotDetected); Methadone Screen, Urine Not Detected (NotDetected); Opiate Screen,Urine Not Detected (NotDetected); Oxycodone Screen, Urine Not Detected (NotDetected); Phencyclidine Screen,Urine Not Detected (NotDetected); Tricyclic Antidepressant,Urine Not Detected (NotDetected); Urn Cannabinoid Scrn Not Detected (NotDetected)
[2021-01-30 07:21] LABS: Glucose,Whole Blood 101 mg/dL (75-99)
[2021-01-30] MEDS: APIXABAN 5 MG TAB PO SCH (08:04)
[2021-01-30] MEDS: TAMSULOSIN 0.4 MG CAP.ER.24H PO SCH (08:04)
[2021-01-30] MEDS: METOPROLOL SUCCINATE (ER) 25 MG TAB.ER.24H PO SCH (08:04)
[2021-01-30] MEDS: ASPIRIN 81 MG PO SCH (08:04)
[2021-01-30] MEDS: INSULIN ASPART (NovoLOG) 100 UNIT/ML VIAL SQ SCH (08:05)
[2021-01-30 08:08] VITALS: BP 107/69; PULSE 83; RESP 17; TEMP 98.5
[2021-01-30 09:50] LABS: Chol/HDL Ratio 4.34 Ratio; HDL Cholesterol 37.8 mg/dL (40.00-60.00); LDL Cholesterol,Calculated 107.2 mg/dL (0.0-131.0); Triglycerides 94.8 mg/dL (0.00-149.00); VLDL Calculation 18.96 mg/dL (5.00-40.00)
--- NOTE | 2021-01-30 10:55 | ECHOF ---
Referral Reason:Syncope MEASUREMENTS -------- HEIGHT: 180.3 cm WEIGHT: 81.6 kg BP: 112/74 RVIDd: 3.4 cm (< 3.3) IVSd: 1.4 cm (0.6 - 1.1) LVIDd: 5.1 cm (3.9 - 5.3) LVPWd: 1.5 cm (0.6 - 1.1) IVSs: 2.1 cm LVIDs: 4.1 cm LVPWs: 1.8 cm LA Diam: 4.3 cm (2.7 - 3.8) LAESV Index (A-L): 38.83 ml/m Ao Diam: 3.8 cm (2.0 - 3.7) AV Cusp: 2.4 cm (1.5 - 2.6) MV EXCURSION: 15.568 mm (> 18.000) MV EF SLOPE: 129 mm/s (70 - 150) EPSS: 0.8 cm RAP: 5.00 mmHg RVSP: 38.36 mmHg FINDINGS -------- This was a technically good study. The left ventricular size is normal. There is moderate concentric left ventricular hypertrophy. O verall left ventricular systolic function is mild-moderately impaired with, an EF between 40 - 45 %. Apical anterior LV wall motion is hypokinetic. Apical lateral LV wall motion is hypokinetic. Apical inferior LV wall motion is hypokinetic. Apical septum LV wall motion is hypokinetic. The right ventricle is mildly enlarged. LA is moderately dilated 34-39 ml/m2 The right atrium is normal in size. Interatrial and interventricular septum intact. There is mild aortic valve sclerosis. The mitral valve leaflets are mildly thickened. Mild mitral annular calcification present. Modera te mitral regurgitation is present. Mild tricuspid regurgitation present. There is mild pulmonary hypertension. The right ventricular systolic pressure, as measured by Doppler, is 38.36mmHg. Trace/mild (physiologic) pulmonic regurgitation. The aortic root is dilated measuring 3.8cm. Normal inferior vena cava with normal inspiratory collapse consistent with estimated right atrial pre ssure of 5 mmHg. The inferior vena cava is mildly dilated. There is no pericardial effusion. CONCLUSIONS -------- 1. The left ventricular size is normal. 2. There is moderate concentric left ventricular hypertrophy. 3. Overall left ventricular systolic function is mild-moderately impaired with, an EF between 40 - 45 %. 4. Apical anterior LV wall motion is hypokinetic. 5. Apical lateral LV wall motion is hypokinetic. 6. Apical inferior LV wall motion is hypokinetic. 7. Apical septum LV wall motion is hypokinetic. 8. The right ventricle is mildly enlarged. 9. LA is moderately dilated 34-39 ml/m2 10. There is mild aortic valve sclerosis. 11. The mitral valve leaflets are mildly thickened. 12. Mild mitral annular calcification present. 13. Moderate mitral regurgitation is present. 14. Mild tricuspid regurgitation present. 15. There is mild pulmonary hypertension. 16. The right ventricular systolic pressure, as measured by Doppler, is 38.36mmHg. 17. Trace/mild (physiologic) pulmonic regurgitation. 18. The aortic root is dilated measuring 3.8cm. 19. The inferior vena cava is mildly dilated. 20. There is no pericardial effusion. MOTION STUDY TECHNICIAN: MINH Gonzalez
[2021-01-30 12:26] LABS: Glucose,Whole Blood 115 mg/dL (75-99)
[2021-01-30] MEDS ORDERED: CYANOCOBALAMIN 1,000 MCG/ML 1 ML VIAL IM ONE (13:00)
--- NOTE | 2021-01-30 19:13 | P.DS ---
<Ravi Boone - Last Filed: 01/30/21 19:12> Providers Expected date of discharge: 01/30/21 Hospital Course: Discharge Diagnosis: Acute metabolic encephalopathy secondary to suspected accidental ingestion of benzodiazepines Confusion Slurred speech Paroxysmal atrial fibrillation Type II col-pzumzvb-yxvpisujd diabetes mellitus Hypertension Dementia BPH Hyperlipidemia Stage IIIc KD History of CAD with previous CA and stent placement Hospital Course: Patient is a very pleasant 80-year-old male with a past medical history of CAD with history of CA and stents, hypertension, hyperlipidemia, paroxysmal atrial fibrillation on anticoagulation with Eliquis, type II zmc-nfdyura-xfrvuhedw diabetes mellitus, BPH, and dementia. He was brought into hospital by family due to worsening mental status, increased confusion, and slurred speech,. Per family patient has been progressively worsening and that they need assistance caring for him secondary to his persistently worsening confusion and aggressive behaviors. Patient was seen and fully evaluated in the emergency department CT brain was completed negative for acute intercranial process. CTA head and neck also unremarkable. Chest x-ray did reveal possible left-sided atelectasis. EKG revealing a right bundle branch block, unchanged from previous EKG completed 01/22/21. Urine drug screen was positive for benzodiazepines, patient is not cu rrently prescribed to take benzodiazepines. Possible concerns that patient may accidentally have taken his 's medications. Patient was admitted under our services with consultation to neurology. EEG and MRI completed. EEG reported as borderline abnormal due to minimal background slowing suggestive of very mild cerebral dysfunction as can be seen with encephalopathy or medication effect, negative for epileptiform activity. MRI negative for acute intercranial process revealing chronic small vessel ischemic changes along with moderate to severe diffuse cerebral atrophy. Echocardiogram showing a mild to moderately impaired EF between 40-45% with left ventricular hypokinesis and mild pulmonary hypertension. Patient remains at baseline mentation. Family reports patient continues to drive at home and is typically only mildly confused during the days but over the past several weeks has worsened with aggressive behaviors in the evening and at night. Patient and family instructed that patient is no longer able to drive secondary to current mentation and risk of harm to self and others if he gets behind the wheel. Patient and family verbalized understanding of this. Patient's condition is stable. He has been cleared from neurologic standpoint discharge home. Had long discussion with patient, patient's , patient's daughter, and patient's son-in-law at bedside. Expressed importance that patient will require 24-hour monitoring and will need to follow up with a neuropsychiatrist. Contact information provided for neuropsychiatrist. Patient continues to deny having any complaints at this time. Patient being discharged home with his family understanding of his need for 24-hour supervision, home care, and arrangements have been made by case management for patient to receive meals on wheels. Physical examination: Vital signs reviewed and stable. General: Nontoxic, no distress and appears stated age. Derm: Skin warm and dry, normal coloration for ethnicity. Head: Atraumatic, normocephalic and symmetric. Eyes: EOMs intact, no lid lag, and anicteric sclera Mouth: no lip lesions, mucus membranes moist Cardiovascular: regular rate and rhythm with normal S1S2, no murmur, positive posterior tibial pulses bilaterally, and cap refill < 2 seconds. Lungs: Respirations even, regular, and unlabored on room air. Lungs CTA bilaterally, no rhonchi, no rales, no wheezing, and no accessory muscle usage. Abdominal: soft, nontender to palpation, no guarding, no appreciable organomegaly Ext: ROM intact. No gross muscle atrophy, no edema, no contractures Neuro: Speech clear, face symmetrical and CN II-XII grossly intact with no noted focal neuro deficits Psych: Alert and oriented to person, place, and situation. Patient remains confused to time. He is very redirectable and he has shown no signs of agitation or aggression throughout hospitalization. Appropriate and pleasant affect. A total of 55 minutes of time were spent preparing this complex discharge summary. Patient Condition at Discharge: Stable Plan - Discharge Summary New Discharge Prescriptions: Continue metFORMIN HCL [Glucophage] 500 mg PO BID Aspirin 81 mg PO DAILY rOPINIRole HCL [Requip] 2 mg PO HS Tamsulosin [Flomax] 0.4 mg PO DAILY Apixaban [Eliquis] 5 mg PO BID Citalopram Hydrobromide [CeleXA] 40 mg PO DAILY Metoprolol Succinate [Toprol XL] 25 mg PO DAILY Multivit-Min/FA/Lycopen/Lutein [Centrum Silver Men Tablet] 1 tab PO DAILY Tadalafil [Cialis] 5 mg PO DAILY Discharge Medication List Aspirin 81 mg PO DAILY 09/10/13 [History] metFORMIN HCL [Glucophage] 500 mg PO BID 09/10/13 [History] Apixaban [Eliquis] 5 mg PO BID 01/21/21 [History] Citalopram Hydrobromide [CeleXA] 40 mg PO DAILY 01/21/21 [History] Metoprolol Succinate [Toprol XL] 25 mg PO DAILY 01/21/21 [History] Multivit-Min/FA/Lycopen/Lutein [Centrum Silver Men Tablet] 1 tab PO DAILY 01/21/21 [History] Tadalafil [Cialis] 5 mg PO DAILY 01/21/21 [History] Tamsulosin [Flomax] 0.4 mg PO DAILY 01/21/21 [History] rOPINIRole HCL [Requip] 2 mg PO HS 01/21/21 [History] Follow up Appointment(s)/Referral(s): Lalo Louie MD [Primary Care Provider] - 1-2 days [facility], [NON-STAFF] - 1 Week Patient Instructions/Handouts: Altered Mental Status (GEN) Activity/Diet/Wound Care/Special Instructions: Dr. Lalo Louie M.D. Will set you up with a chronic disease care services manager upon follow up appointment. Activity: As tolerated. Patient will require 24-hour supervision. Diet: Heart healthy and carb consistent diet. Avoid salts, or foods with hidden salts such as canned or boxed foods and frozen dinners. Extra salt makes your heart work harder and traps the fluid in your body for longer. Special Instructions: Take all of your medications as directed and remember to keep all of your doctor's appointments and follow-up as needed. Thank you for allowing us to participate in your care, it was truly a pleasure having you for our patient!!! Patient and family were informed of [place] state law stating patient is no longer able to drive a vehicle. It is very important to call and make an appointment to establish care with: [facility] Neuropsychologist Dr. Tasha Acosta, PhD [phone] Specialties: Neuropsychologist Services: Video Visits [facility] [id number] [place] [address] Discharge Disposition: HOME WITH HOME HEALTH SERVICES <Senait Ware - Last Filed: 01/30/21 22:11> Providers Date of admission: 01/28/21 23:04 Attending physician: Maggy Junior MD Consults: 01/28/21 23:05 Consult Physician Routine Consulting Provider: Brian Willoughby Consult Reason/Comments: AMS, possible benzodiazepine overdose, lethargy Do you want consulting provider notified?: Yes Primary care physician: [facility] Course: Ravi Boone NP rendered care for this patient independently, reviewed the findings and plan as documented in the note above. I did not physically speak with or examine the patient on this date. Additiona DX: cardiomyopathy
== END 2021-01-30 16:09 | disposition home health service (06) ==
LOC: EC 19:34 → 6NMEDSUR 23:04
PROVIDERS: ADMIT Internal Medicine; ATTEND Internal Medicine
DX: G93.41 Metabolic encephalopathy (principal); R47.01 Aphasia; I48.0 Paroxysmal atrial fibrillation; I12.9 Hypertensive chronic kidney disease with stage 1 through stage 4 chronic kidney disease, or unspecified chronic kidney disease; E11.22 Type 2 diabetes mellitus with diabetic chronic kidney disease; N18.30 Chronic kidney disease, stage 3 unspecified; N40.0 Benign prostatic hyperplasia without lower urinary tract symptoms; F03.90 Unspecified dementia, unspecified severity, without behavioral disturbance, psychotic disturbance, mood disturbance, and anxiety; E78.5 Hyperlipidemia, unspecified; I25.2 Old myocardial infarction; I25.10 Atherosclerotic heart disease of native coronary artery without angina pectoris; R55 Syncope and collapse; R53.1 Weakness; I45.10 Unspecified right bundle-branch block; I27.20 Pulmonary hypertension, unspecified; I42.9 Cardiomyopathy, unspecified; I08.3 Combined rheumatic disorders of mitral, aortic and tricuspid valves; F41.9 Anxiety disorder, unspecified; E66.9 Obesity, unspecified; Z68.25 Body mass index [BMI] 25.0-25.9, adult; R53.81 Other malaise; F17.290 Nicotine dependence, other tobacco product, uncomplicated; R94.4 Abnormal results of kidney function studies; I48.20 Chronic atrial fibrillation, unspecified; Z20.822 Contact with and (suspected) exposure to COVID-19; Z71.9 Counseling, unspecified; Z95.5 Presence of coronary angioplasty implant and graft; Z85.828 Personal history of other malignant neoplasm of skin; Z79.84 Long term (current) use of oral hypoglycemic drugs; Z79.01 Long term (current) use of anticoagulants; Z79.82 Long term (current) use of aspirin; Z79.899 Other long term (current) drug therapy; Z80.8 Family history of malignant neoplasm of other organs or systems
CPT/HCPCS: 96361 ×2; 96360; 99285; 36415; 95816; 93005; 93306; 80061; 80053 ×2; 82607; 82140; 82746; 82803; 83605; 84484; 85025 ×2; 85610; 85730; 81003; 80306 ×2; 83036; 87635; 71045; 70496; 70450; 70498; 70553; G0378 ×3; G0480; A9585; Q9967; 80320